=== PATIENT | male | born 1955 | race Caucasian/White ===

== ENCOUNTER 2017-01-05 16:23 | Observation (INO) | payer BC ==
[2017-01-05] MEDS ORDERED: HYDROmorphone* 1 MG/ML 1 ML SYR IV PRN (16:39)
[2017-01-05] MEDS ORDERED: Ondansetron INJ* 2 MG/ML VIAL IV PRN (16:39)
[2017-01-05] MEDS ORDERED: NS 0.9% 1000 ML* 1,000 ML IV SCH (16:45)
--- NOTE | 2017-01-05 18:38 | HP ---
HISTORY AND PHYSICAL: DATE OF ADMISSION: 01/05/17 INDICATION: Status post PEG tube placement. NARRATIVE: Mr. Pennington is a pleasant 61-year-old gentleman who has been diagnosed with tonsillar cancer who is undergoing radiation therapy and will need a PEG tube. He denies any dysphagia at this time; however, he will likely develop odynophagia in the future as the treatment progresses. PAST MEDICAL HISTORY: Significant for: 1. Hypertension. 2. Diabetes. 3. Hypercholesterolemia. 4. Tonsillar cancer. 5. He has had 3 colonoscopies. PAST SURGICAL HISTORY: 1. Bilateral carpal tunnel. 2. Patent ductus repair in 2009. MEDICATIONS: Include: 1. Acyclovir. 2. Metformin. ALLERGIES: None. PERSONAL HABITS: He denies any tobacco. He does have a large amount of secondhand smoke exposure. No alcohol. Some caffeine. REVIEW OF SYSTEMS: All systems were reviewed, other than that mentioned in the HPI were unremarkable. PHYSICAL EXAMINATION GENERAL: Well-appearing male in no apparent distress. Alert, oriented, pleasant, fluent. VITAL SIGNS: Height 5 feet 10 inches, weight 232 pounds. Blood pressure 126/78 , pulse 71. BMI is 33.3. HEENT: Mucous membranes are moist. LUNGS: Clear to auscultation. HEART: Regular rate and rhythm. ABDOMEN: Obese. Positive bowel sounds. Soft, nontender, nondistended. No hepatosplenomegaly, masses, rebound, or guarding. SKIN: Warm and dry. MUSCULOSKELETAL: No CVA or spine tenderness to palpation. ASSESSMENT AND PLAN: This is a pleasant 61-year-old gentleman who just underwent a PEG tube insertion. He is doing well. He will be admitted to the hospital for nutritional consult, for PEG tube teaching, pain control, and hopefully, he can be discharged to home tomorrow. [id number]/[facility] #: [id number] [facility]
[2017-01-06 08:19] VITALS: BP 134/88
[2017-01-06 08:40] LABS: Hematocrit 32 % (42-52); Hemoglobin 10.7 g/dl (14.0-18.0); Mean Corpuscular HGB Conc 34 g/dl (31-36); Mean Corpuscular Hemoglobin 27 pg (27-31); Mean Corpuscular Volume 81 fL (80-94); Mean Platelet Volume 9 um3 (7.4-10.4); Red Blood Count 3.95 10^6/ul (4.0-5.4); Red Cell Distribution Width 14 % (10.5-15)
--- NOTE | 2017-01-06 15:11 | DS ---
DISCHARGE SUMMARY: DATE OF ADMISSION: 01/05/17 DATE OF DISCHARGE: 01/06/17 DISCHARGE DIAGNOSES: 1. Tonsillar cancer. 2. Status post PEG tube placement. HOSPITAL COURSE: The patient was admitted for 24-hour OBV per my routine protocol after his EGD with PEG tube placement yesterday afternoon. The patient tolerated the procedure well. I saw him at approximately 6:30 this morning. He was doing well, had very minimal abdominal pain at the PEG tube site. No other abdominal pain. His abdominal exam was benign and very soft. His vital signs were stable. He was afebrile. Labs were pending at the time and did come back with a hemoglobin of 10.7 which is down slightly from before, however, he may have been a little on the dry side. He did have PEG tube teaching and nutrition consult. He will be discharged to his oncology appointment. The patient will call with any questions or concerns. DISCHARGE INSTRUCTIONS: 1. He can resume all of his previous medications. 2. He will call with me any questions or concerns. [id number]/[facility] #: [id number] [place]
== END 2017-01-06 08:20 | disposition home or self-care (01) ==
LOC: SSU 16:23
PROVIDERS: ADMIT Internal Medicine Gastroenterology; ATTEND Internal Medicine Gastroenterology
DX: C09.9 Malignant neoplasm of tonsil, unspecified (principal); I10 Essential (primary) hypertension; E11.9 Type 2 diabetes mellitus without complications; E78.00 Pure hypercholesterolemia, unspecified; Z79.4 Long term (current) use of insulin
CPT/HCPCS: 36415; 85025; 96374; 96375; G0378; J1170; J2405

== ENCOUNTER → 2018-07-23 09:56 | Emergency (ER) | payer BC ==
[~2018-07-23 09:56] MED LIST: Iodixanol* (CONTRAST) 320 MG/ML 100 ML SDV IV ONE
--- OUTSIDE RECORDS SUMMARY | 2018-07-23 10:18 | XMS REPORT | Continuity of Care Document ---
:1955 External Reference #:[id number] Author Name Emma Curtis Care Team Providers Name Role Phone Fam Robledo MD Primary Care Physician Unavailable Payers Type Date Identification Numbers Payment Provider Subscriber Policy Number: [id number] [employer] Ladonna Pennington PayID: [id number] [address] [address] TAMELA Younger [address] Onset: 2014 Policy Number: [id number] Treo David Pennington Group Name: [phone] [address] PayID: [id number] [address] Advance Directives Description No Information Available Problems Date Description Provider Status Onset: 06/08/2017 Essential hypertension Dianne Rowe NP Active Onset: 06/08/2017 Sleep apnea Dianne Rowe NP Active Note: resolved, not on CPAP Onset: 06/08/2017 Type 2 diabetes mellitus Dianne Rowe NP Active Onset: 06/08/2017 Hyperlipidemia Dianne Rowe NP Active Onset: 06/08/2017 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 11/10 Onset: 01/01/2018 History of external beam Fam Robledo Active radiation to thyroid TNIO Camacho Onset: 01/01/2018 Hypothyroidism Fermin Anthony M.D., FACP Onset: 05/27/2018 Chronic kidney disease stage 2 Fermin Anthony M.D., FACP Family History Date Family Member(s) Problem(s) Comments Father Unknown patient adopted Siblings None adopted Social History Type Date Description Comments Sex Unknown Marital Status Lives With Occupation Currently Working Tobacco Use Start: Unknown Never Smoked Cigarettes Smoking Status Reviewed: 07/23/18 Never Smoked Cigarettes ETOH Use 05/27/2018 Denies alcohol use Tobacco Use Start: Unknown Patient has never smoked Recreational Drug Use Denies Drug Use Exercise Type/Frequency Exercises sporadically bowling and golf Allergies, Adverse Reactions, Alerts Description No Known Drug Allergies Medications Medication Date Status Form Strength Qnty SIG Indications Ordering Provider Lovastatin Active Tablets 20mg 90tabs take 1 Fam 018 tablet at Sujey Robledo, bedtime M.Sujey,FACP Levothyroxine /0 Active Tablets 75mcg 1 by Unknown Sodium 000 mouth every day Levothyroxine Hx Tablets 50mcg 30tabs 1 by Fam Sodium 018 - mouth Sujey Robledo, every day João.Sujey,FACP 018 Lisinopril Hx Tablets 10mg 90tabs 1 by Dianne 018 - mouth Rowe, every day [employer] 018 No Active Hx Unknown Medications 017 - 018 Metformin HCL /0 Hx Tablets 500mg 1 by Unknown 000 - mouth twice a 017 day Lisinopril /0 Hx Tablets 40mg 1 by Unknown 000 - mouth every day 017 Simvastatin /0 Hx Tablets 20mg 1 by Unknown 000 - mouth every day 017 Indapamide /0 Hx Tablets 2.5mg 1 by Unknown 000 - mouth every day 017 Diclofenac /0 Hx Tablets 75mg take 1 Unknown Sodium 000 - DR tablet by mouth 017 twice a day Aleve 00/0 Hx prn Unknown 000 - 017 Levothyroxine /0 Hx Tablets 25mcg 90tabs 1 tabs by Fam Sodium 000 - mouth Sujey Robledo, every day João.Sujey,FACP 018 Immunizations Description No Information Available Vital Signs Date Vital Result Comment 07/23/2018 9:01am Height 69 inches 5'9" Weight 190.00 lb Heart Rate 88 /min BP Systolic Sitting 120 mmHg BP Diastolic Sitting 70 mmHg Body Temperature 100.5 F O2 % BldC Oximetry 95 % BMI (Body Mass Index) 28.1 kg/m2 05/27/2018 9:20am Height 69 inches 5'9" Weight 192.00 lb Heart Rate 62 /min BP Systolic 124 mmHg BP Diastolic 62 mmHg O2 % BldC Oximetry 99 % BMI (Body Mass Index) 28.4 kg/m2 01/01/2018 8:38am Height 69 inches 5'9" Weight 174.00 lb Heart Rate 55 /min BP Systolic Sitting 110 mmHg BP Diastolic Sitting 68 mmHg Body Temperature 96.7 F O2 % BldC Oximetry 98 % BMI (Body Mass Index) 25.7 kg/m2 06/08/2017 9:19am Height 69 inches 5'9" Weight 169.00 lb Heart Rate 56 /min BP Systolic Sitting 130 mmHg BP Diastolic Sitting 72 mmHg Body Temperature 96.2 F BMI (Body Mass Index) 25.0 kg/m2 06/24/2016 11:27am Height 70 inches 5'10" Weight 226.00 lb Pain Level 6 BMI (Body Mass Index) 32.4 kg/m2 03/27/2016 8:26am Height 70 inches 5'10" Weight 226.00 lb per pt Pain Level 5 BMI (Body Mass Index) 32.4 kg/m2 01/24/2016 9:28am Height 70 inches 5'10" Weight 235.00 lb Pain Level 6 BMI (Body Mass Index) 33.7 kg/m2 12/20/2015 8:49am Height 70 inches 5'10" Weight 235.00 lb Pain Level 5 BMI (Body Mass Index) 33.7 kg/m2 11/16/2015 8:56am Height 70 inches 5'10" Weight 235.00 lb Pain Level 5 goes up without the brace BMI (Body Mass Index) 33.7 kg/m2 09/20/2015 9:36am Height 70 inches 5'10" Weight 235.00 lb Pain Level 5 BMI (Body Mass Index) 33.7 kg/m2 08/17/2015 11:25am Height 70 inches 5'10" Weight 235.00 lb Pain Level 5 BMI (Body Mass Index) 33.7 kg/m2 06/19/2015 10:56am Height 70 inches 5'10" Weight 235.00 lb Pain Level 5 BMI (Body Mass Index) 33.7 kg/m2 04/25/2015 3:27pm Height 70 inches 5'10" Weight 235.00 lb Pain Level 8 BMI (Body Mass Index) 33.7 kg/m2 Results Test Date Facility Test Result H/L Range Note Laboratory test 06/25/2018 [facility] TSH 18.33 High 0.34- 5.60 finding 101 (Thyroid mcIU/[place] [address] Stim Horm) [phone] Free T4 (Free Thyroxine) 0.69 ng/dL N 0.61-1.12 Hepatitis C Antibody 06/25/2018 [facility] HCV Index < 0.0 Index [address] [place] [address] [phone] Hepatitis C Antibody Nonreactive Nonreactive Laboratory test 06/25/2018 [facility] Hemoglobin A1c 5.4 % N 4.0-5.6 1 finding 101 (Glyco HGB) [place] [address] [phone] Lipid Profile 06/25/2018 [facility] Triglycerides 78 mg/dL 2 (Trig/Chol/HDL) [address] [place] [address] [phone] Cholesterol 153 mg/dL 3 HDL Cholesterol 45.8 mg/dL 4 LDL Cholesterol 92 mg/dL 5 CBC Auto 06/25/2018 [facility] White Blood 3.4 10^3/uL Low 3.5 -10.8 Diff 101 [place] [address] [phone] Red Blood Count 4.11 10^6/uL N 4.00-5.40 Hemoglobin 12.2 g/dL Low 14.0-18.0 Hematocrit 36 % Low 42-52 Mean Corpuscular Volume 86 fL N 80-94 Mean Corpuscular Hemoglobin 30 pg N 27-31 Mean Corpuscular HGB Conc 34 g/dL N 31-36 Red Cell Distribution Width 14 % N 10.5-15 Platelet Count 192 10^3/uL N 150-450 Mean Platelet Volume 7.9 fL N 7.4-10.4 Abs Neutrophils 2.4 10^3/uL N 1.5-7.7 Abs Lymphocytes 0.5 10^3/uL Low 1.0-4.8 Abs Monocytes 0.4 10^3/uL N 0-0.8 Abs Eosinophils 0.1 10^3/uL N 0-0.6 Abs Basophils 0 10^3/uL N 0-0.2 Abs Nucleated RBC 0 10^3/uL Granulocyte % 69.5 % Lymphocyte % 13.6 % Monocyte % 12.9 % Eosinophil % 2.8 % Basophil % 1.2 % Nucleated Red Blood Cells % 0 Comp Metabolic Panel 06/25/2018 [facility] Sodium 137 mmol/L N 135-[address] [place] [address] [phone] Potassium 4.3 mmol/L N 3.5-5.0 Chloride 105 mmol/L N 101-111 Co2 Carbon Dioxide 27 mmol/L N 22-32 Anion Gap 5 mmol/L N 2-11 Glucose 112 mg/dL High 70-100 Blood Urea Nitrogen 25 mg/dL High 6-24 Creatinine 1.75 mg/dL High 0.67-1.17 BUN/Creatinine Ratio 14.3 N 8-20 Calcium 9.5 mg/dL N 8.6-10.3 Total Protein 6.9 g/dL N 6.4-8.9 Albumin 4.1 g/dL N 3.2-5.2 Globulin 2.8 g/dL N 2-4 Albumin/Globulin Ratio 1.5 N 1-3 Total Bilirubin 0.50 mg/dL N 0.2-1.0 Alkaline Phosphatase 78 U/L N 34-104 Alt 8 U/L N 7-52 Ast 15 U/L N 13-39 Egfr Non- 39.4 >60 Egfr 47.7 >60 6 CBC Auto Diff 03/26/2018 [facility] White Blood 4.8 10^3/uL N 3.5-10.[address] [place] [address] [phone] Red Blood Count 3.74 10^6/uL Low 4.00-5.40 Hemoglobin 11.5 g/dL Low 14.0-18.0 Hematocrit 33 % Low 42-52 Mean Corpuscular Volume 88 fL N 80-94 Mean Corpuscular Hemoglobin 31 pg N 27-31 Mean Corpuscular HGB Conc 35 g/dL N 31-36 Red Cell Distribution Width 14 % N 10.5-15 Platelet Count 166 10^3/uL N 150-450 Mean Platelet Volume 8.1 um3 N 7.4-10.4 Abs Neutrophils 3.7 10^3/uL N 1.5-7.7 Abs Lymphocytes 0.6 10^3/uL Low 1.0-4.8 Abs Monocytes 0.4 10^3/uL N 0-0.8 Abs Eosinophils 0.1 10^3/uL N 0-0.6 Abs Basophils 0 10^3/uL N 0-0.2 Abs Nucleated RBC 0 10^3/uL Granulocyte % 77.3 % N 38-83 Lymphocyte % 11.9 % Low 25-47 Monocyte % 7.3 % High 0-7 Eosinophil % 2.5 % N 0-6 Basophil % 1.0 % N 0-2 Nucleated Red Blood Cells % 0 Comp Metabolic Panel 03/26/2018 [facility] Sodium 138 mmol/L N 135-145 [address] [place] [address] [phone] Potassium 4.6 mmol/L N 3.5-5.0 Chloride 107 mmol/L N 101-111 Co2 Carbon Dioxide 26 mmol/L N 22-32 Anion Gap 5 mmol/L N 2-11 Glucose 116 mg/dL High 70-100 Blood Urea Nitrogen 28 mg/dL High 6-24 Creatinine 1.65 mg/dL High 0.67-1.17 BUN/Creatinine Ratio 17.0 N 8-20 Calcium 9.4 mg/dL N 8.6-10.3 Total Protein 6.9 g/dL N 6.4-8.9 Albumin 4.1 g/dL N 3.2-5.2 Globulin 2.8 g/dL N 2-4 Albumin/Globulin Ratio 1.5 N 1-3 Total Bilirubin 0.50 mg/dL N 0.2-1.0 Alkaline Phosphatase 73 U/L N 34-104 Alt 9 U/L N 7-52 Ast 15 U/L N 13-39 Egfr Non- 42.2 >60 Egfr 51.1 >60 7 Laboratory test 03/26/2018 [facility] TSH (Thyroid 8.09 High 0.34-5.[address] [facility]orm) mcIU/[place] [address] [phone] Basic Metabolic 01/15/2018 [facility] Sodium 139 mmol/L N 135- [address] [place] [address] [phone] Potassium 4.5 mmol/L N 3.5-5.0 Chloride 105 mmol/L N 101-111 Co2 Carbon Dioxide 27 mmol/L N 22-32 Anion Gap 7 mmol/L N 2-11 Glucose 128 mg/dL High 70-100 Blood Urea Nitrogen 38 mg/dL High 6-24 Creatinine 1.72 mg/dL High 0.67-1.17 BUN/Creatinine Ratio 22.1 High 8-20 Calcium 9.8 mg/dL N 8.6-10.3 Egfr Non- 40.4 >60 Egfr 48.8 >60 8 Lipid Profile 01/01/2018 [facility] Triglycerides 66 mg/dL 9 (Trig/Chol/HDL) [address] [place] [address] [phone] Cholesterol 202 mg/dL 10 HDL Cholesterol 51.5 mg/dL 11 LDL Cholesterol 137 mg/dL 12 Urine Microalbumin 01/01/2018 [facility] Ur Microalbumin < 15.[address] (mg/L) mg/[place] [address] [phone] Urine Creatinine 100.19 mg/dL Urine Microalbumin/Creatinine TNP ug/mg <31 13 Laboratory test 01/01/2018 [facility] TSH (Thyroid 5.05 N 0.34 -5.60 [address] Stim Horm) mcIU/[place] [address] [phone] Comp Metabolic 01/01/2018 [facility] Sodium 137 mmol/L Low 139 -[address] [place] [address] [phone] Chloride 106 mmol/L N 101-111 Co2 Carbon Dioxide 24 mmol/L N 22-32 Glucose 102 mg/dL High 70-100 Blood Urea Nitrogen 36 mg/dL High 6-24 Creatinine 1.90 mg/dL High 0.67-1.17 BUN/Creatinine Ratio 18.9 N 8-20 Calcium 9.2 mg/dL N 8.6-10.3 Total Protein 6.7 g/dL N 6.4-8.9 Albumin 3.9 g/dL N 3.2-5.2 Globulin 2.8 g/dL N 2-4 Albumin/Globulin Ratio 1.4 N 1-3 Total Bilirubin 0.40 mg/dL N 0.2-1.0 Alkaline Phosphatase 77 U/L N 34-104 Alt 11 U/L N 7-52 Ast 16 U/L N 13-39 Egfr Non- 36.0 >60 Egfr 46.3 >60 15 Potassium 5.1 mmol/L High 3.5-5.0 Anion Gap 7 mmol/L N 2-11 Laboratory test 01/01/2018 [facility] Hemoglobin A1c 5.6 % N 4.0-5.6 [address] (Glyco HGB) [place] [address] [phone] Laboratory test 01/01/2018 [facility] Hemoglobin A1c 5.6 5-7 finding CBC Auto Diff 10/09/2017 [facility] White Blood 2.7 Low 3.5- 10.[address] Count 10^3/[place] [address] [phone] Red Blood Count 3.43 10^6/uL Low 4.0-5.4 Hemoglobin 10.1 g/dL Low 14.0-18.0 Hematocrit 30 % Low 42-52 Mean Corpuscular Volume 87 fL N 80-94 Mean Corpuscular Hemoglobin 29 pg N 27-31 Mean Corpuscular HGB Conc 34 g/dL N 31-36 Red Cell Distribution Width 15 % N 10.5-15 Platelet Count 178 10^3/uL N 150-450 Mean Platelet Volume 8 um3 N 7.4-10.4 Abs Neutrophils 1.8 10^3/uL N 1.5-7.7 Abs Lymphocytes 0.5 10^3/uL Low 1.0-4.8 Abs Monocytes 0.3 10^3/uL N 0-0.8 Abs Eosinophils 0.1 10^3/uL N 0-0.6 Abs Basophils 0 10^3/uL N 0-0.2 Abs Nucleated RBC 0 10^3/uL Granulocyte % 68.6 % N 38-83 Lymphocyte % 17.1 % Low 25-47 Monocyte % 10.7 % High 0-7 Eosinophil % 3.2 % N 0-6 Basophil % 0.4 % N 0-2 Nucleated Red Blood Cells % 0.1 Comp Metabolic Panel 10/09/2017 [facility] Sodium 138 mmol/L N 133-[address] [place] [address] [phone] Potassium 4.0 mmol/L N 3.5-5.0 Chloride 105 mmol/L N 101-111 Co2 Carbon Dioxide 27 mmol/L N 22-32 Anion Gap 6 mmol/L N 2-11 Glucose 102 mg/dL High 70-100 Blood Urea Nitrogen 24 mg/dL N 6-24 Creatinine 1.37 mg/dL High 0.67-1.17 BUN/Creatinine Ratio 17.5 N 8-20 Calcium 9.7 mg/dL N 8.6-10.3 Total Protein 7.0 g/dL N 6.4-8.9 Albumin 4.1 g/dL N 3.2-5.2 Globulin 2.9 g/dL N 2-4 Albumin/Globulin Ratio 1.4 N 1-3 Total Bilirubin 0.40 mg/dL N 0.2-1.0 Alkaline Phosphatase 70 U/L N 34-104 Alt 10 U/L N 7-52 Ast 15 U/L N 13-39 Egfr Non- 52.5 >60 Egfr 67.5 >60 17 Laboratory test 10/09/2017 [facility] TSH (Thyroid 19.48 High 0.34-5.60 finding 101 [facility] Stim Horm) mcIU/[place] [address] [phone] Laboratory test 08/14/2017 [facility] Magnesium 1.7 mg/dL Low 1.9-2.7 finding [address] [place] [address] [phone] Comp Metabolic 08/14/2017 [facility] Sodium 138 mmol/L N 133- 145 Panel [address] [place] [address] [phone] Potassium 4.0 mmol/L N 3.5-5.0 Chloride 104 mmol/L N 101-111 Co2 Carbon Dioxide 28 mmol/L N 22-32 Anion Gap 6 mmol/L N 2-11 Glucose 109 mg/dL High 70-100 Blood Urea Nitrogen 21 mg/dL N 6-24 Creatinine 1.38 mg/dL High 0.67-1.17 BUN/Creatinine Ratio 15.2 N 8-20 Calcium 9.9 mg/dL N 8.6-10.3 Total Protein 7.2 g/dL N 6.4-8.9 Albumin 4.1 g/dL N 3.2-5.2 Globulin 3.1 g/dL N 2-4 Albumin/Globulin Ratio 1.3 N 1-3 Total Bilirubin 0.50 mg/dL N 0.2-1.0 Alkaline Phosphatase 71 U/L N 34-104 Alt 7 U/L N 7-52 Ast 14 U/L N 13-39 Egfr Non- 52.0 >60 Egfr 66.9 >60 18 CBC Auto 08/14/2017 [facility] White Blood 2.9 10^3/uL Low 3.5 -10.[address] [place] [address] [phone] Red Blood Count 3.49 10^6/uL Low 4.0-5.4 Hemoglobin 10.5 g/dL Low 14.0-18.0 Hematocrit 30 % Low 42-52 Mean Corpuscular Volume 87 fL N 80-94 Mean Corpuscular Hemoglobin 30 pg N 27-31 Mean Corpuscular HGB Conc 35 g/dL N 31-36 Red Cell Distribution Width 14 % N 10.5-15 Platelet Count 197 10^3/uL N 150-450 Mean Platelet Volume 8 um3 N 7.4-10.4 Abs Neutrophils 2.0 10^3/uL N 1.5-7.7 Abs Lymphocytes 0.4 10^3/uL Low 1.0-4.8 Abs Monocytes 0.3 10^3/uL N 0-0.8 Abs Eosinophils 0.1 10^3/uL N 0-0.6 Abs Basophils 0 10^3/uL N 0-0.2 Abs Nucleated RBC 0 10^3/uL Granulocyte % 69.2 % N 38-83 Lymphocyte % 15.2 % Low 25-47 Monocyte % 9.5 % High 1-9 Eosinophil % 4.6 % N 0-6 Basophil % 1.5 % N 0-2 Nucleated Red Blood Cells % 0 CBC Auto Diff 07/24/2017 [facility] White Blood 5.0 10^3/uL N 3.5-10.[address] [place] [address] [phone] Red Blood Count 3.58 10^6/uL Low 4.0-5.4 Hemoglobin 10.8 g/dL Low 14.0-18.0 Hematocrit 31 % Low 42-52 Mean Corpuscular Volume 88 fL N 80-94 Mean Corpuscular Hemoglobin 30 pg N 27-31 Mean Corpuscular HGB Conc 35 g/dL N 31-36 Red Cell Distribution Width 14 % N 10.5-15 Platelet Count 185 10^3/uL N 150-450 Mean Platelet Volume 8 um3 N 7.4-10.4 Abs Neutrophils 4.1 10^3/uL N 1.5-7.7 Abs Lymphocytes 0.3 10^3/uL Low 1.0-4.8 Abs Monocytes 0.4 10^3/uL N 0-0.8 Abs Eosinophils 0.1 10^3/uL N 0-0.6 Abs Basophils 0 10^3/uL N 0-0.2 Abs Nucleated RBC 0 10^3/uL Granulocyte % 82.2 % N 38-83 Lymphocyte % 6.3 % Low 25-47 Monocyte % 8.0 % N 1-9 Eosinophil % 2.7 % N 0-6 Basophil % 0.8 % N 0-2 Nucleated Red Blood Cells % 0.1 Comp Metabolic Panel 07/24/2017 [facility] Sodium 137 mmol/L N 133-[address] [place] [address] [phone] Potassium 4.3 mmol/L N 3.5-5.0 Chloride 102 mmol/L N 101-111 Co2 Carbon Dioxide 29 mmol/L N 22-32 Anion Gap 6 mmol/L N 2-11 Glucose 122 mg/dL High 70-100 Blood Urea Nitrogen 35 mg/dL High 6-24 Creatinine 1.28 mg/dL High 0.67-1.17 BUN/Creatinine Ratio 27.3 High 8-20 Calcium 10.3 mg/dL N 8.6-10.3 Total Protein 7.3 g/dL N 6.4-8.9 Albumin 4.1 g/dL N 3.2-5.2 Globulin 3.2 g/dL N 2-4 Albumin/Globulin Ratio 1.3 N 1-3 Total Bilirubin 0.40 mg/dL N 0.2-1.0 Alkaline Phosphatase 81 U/L N 34-104 Alt 12 U/L N 7-52 Ast 16 U/L N 13-39 Egfr Non- 56.8 >60 Egfr 73.0 >60 19 Laboratory test 07/24/2017 [facility] TSH (Thyroid 10.10 High 0.34-5.[address] Stim [facility]orm) mcIU/[place] [address] [phone] Basic Metabolic 07/03/2017 [facility] Sodium 137 mmol/L N 133- [address] [place] [address] [phone] Potassium 4.5 mmol/L N 3.5-5.0 Chloride 102 mmol/L N 101-111 Co2 Carbon Dioxide 28 mmol/L N 22-32 Anion Gap 7 mmol/L N 2-11 Glucose 110 mg/dL High 70-100 Blood Urea Nitrogen 40 mg/dL High 6-24 Creatinine 1.43 mg/dL High 0.67-1.17 BUN/Creatinine Ratio 28.0 High 8-20 Calcium 10.3 mg/dL N 8.6-10.3 Egfr Non- 49.9 >60 Egfr 64.2 >60 20 Laboratory test 07/03/2017 [facility] TSH (Thyroid 7.84 High 0.34-5.[address] Stim Horm) mcIU/[place] [address] [phone] CBC Auto Diff 06/22/2017 [facility] White Blood 3.6 10^3/uL N 3.5-10.[address] [place] [address] [phone] Red Blood Count 3.48 10^6/uL Low 4.0-5.4 Hemoglobin 10.7 g/dL Low 14.0-18.0 Hematocrit 31 % Low 42-52 Mean Corpuscular Volume 88 fL N 80-94 Mean Corpuscular Hemoglobin 31 pg N 27-31 Mean Corpuscular HGB Conc 35 g/dL N 31-36 Red Cell Distribution Width 14 % N 10.5-15 Platelet Count 160 10^3/uL N 150-450 Mean Platelet Volume 8 um3 N 7.4-10.4 Abs Neutrophils 2.6 10^3/uL N 1.5-7.7 Abs Lymphocytes 0.5 10^3/uL Low 1.0-4.8 Abs Monocytes 0.3 10^3/uL N 0-0.8 Abs Eosinophils 0.1 10^3/uL N 0-0.6 Abs Basophils 0 10^3/uL N 0-0.2 Abs Nucleated RBC 0 10^3/uL Granulocyte % 73.7 % N 38-83 Lymphocyte % 13.4 % Low 25-47 Monocyte % 8.2 % N 1-9 Eosinophil % 3.5 % N 0-6 Basophil % 1.2 % N 0-2 Nucleated Red Blood Cells % 0 Comp Metabolic Panel 06/22/2017 [facility] Sodium 137 mmol/L N 133-145 [address] [place] [address] [phone] Potassium 4.3 mmol/L N 3.5-5.0 Chloride 103 mmol/L N 101-111 Co2 Carbon Dioxide 28 mmol/L N 22-32 Anion Gap 6 mmol/L N 2-11 Glucose 112 mg/dL High 70-100 Blood Urea Nitrogen 33 mg/dL High 6-24 Creatinine 1.51 mg/dL High 0.67-1.17 BUN/Creatinine Ratio 21.9 High 8-20 Calcium 10.2 mg/dL N 8.6-10.3 Total Protein 7.1 g/dL N 6.4-8.9 Albumin 4.0 g/dL N 3.2-5.2 Globulin 3.1 g/dL N 2-4 Albumin/Globulin Ratio 1.3 N 1-3 Total Bilirubin 0.40 mg/dL N 0.2-1.0 Alkaline Phosphatase 73 U/L N 34-104 Alt 8 U/L N 7-52 Ast 15 U/L N 13-39 Egfr Non- 46.9 >60 Egfr 60.3 >60 21 Laboratory test 06/22/2017 [facility] Magnesium 2.0 mg/dL N 1.9-2.7 finding [address] [place] [address] [phone] Laboratory test 06/08/2017 [facility] Hemoglobin A1c 5.3 5-7 finding Laboratory test 06/08/2017 [facility] Magnesium 2.3 mg/dL N 1.9-2.7 finding [address] [place] [address] [phone] Comp Metabolic 06/08/2017 [facility] Sodium 138 mmol/L N 133- 145 Panel [address] [place] [address] [phone] Potassium 4.6 mmol/L N 3.5-5.0 Chloride 101 mmol/L N 101-111 Co2 Carbon Dioxide 31 mmol/L N 22-32 Anion Gap 6 mmol/L N 2-11 Glucose 101 mg/dL High 70-100 Creatinine 1.41 mg/dL High 0.67-1.17 Calcium 10.4 mg/dL High 8.6-10.3 Total Protein 7.4 g/dL N 6.4-8.9 Albumin 4.0 g/dL N 3.2-5.2 Globulin 3.4 g/dL N 2-4 Albumin/Globulin Ratio 1.2 N 1-3 Total Bilirubin 0.30 mg/dL N 0.2-1.0 Alkaline Phosphatase 89 U/L N 34-104 Alt 13 U/L N 7-52 Ast 17 U/L N 13-39 Egfr Non- 50.8 >60 Egfr 65.3 >60 22 Blood Urea Nitrogen 45 mg/dL High 6-24 BUN/Creatinine Ratio 31.9 High 8-20 CBC Auto Diff 06/08/2017 [facility] White Blood 4.2 10^3/uL N 3.5-10.[address] [place] [address] [phone] Red Blood Count 3.32 10^6/uL Low 4.0-5.4 Hemoglobin 10.3 g/dL Low 14.0-18.0 Hematocrit 30 % Low 42-52 Mean Corpuscular Volume 89 fL N 80-94 Mean Corpuscular Hemoglobin 31 pg N 27-31 Mean Corpuscular HGB Conc 35 g/dL N 31-36 Red Cell Distribution Width 13 % N 10.5-15 Platelet Count 248 10^3/uL N 150-450 Mean Platelet Volume 8 um3 N 7.4-10.4 Abs Neutrophils 3.3 10^3/uL N 1.5-7.7 Abs Lymphocytes 0.4 10^3/uL Low 1.0-4.8 Abs Monocytes 0.3 10^3/uL N 0-0.8 Abs Eosinophils 0.1 10^3/uL N 0-0.6 Abs Basophils 0 10^3/uL N 0-0.2 Abs Nucleated RBC 0 10^3/uL Granulocyte % 78.9 % N 38-83 Lymphocyte % 9.8 % Low 25-47 Monocyte % 7.1 % N 1-9 Eosinophil % 3.3 % N 0-6 Basophil % 0.9 % N 0-2 Nucleated Red Blood Cells % 0.1 Comp Metabolic Panel 05/25/2017 [facility] Sodium 135 mmol/L N 133-[address] [place] [address] [phone] Potassium 4.3 mmol/L N 3.5-5.0 Chloride 101 mmol/L N 101-111 Co2 Carbon Dioxide 29 mmol/L N 22-32 Anion Gap 5 mmol/L N 2-11 Glucose 104 mg/dL High 70-100 Blood Urea Nitrogen 39 mg/dL High 6-24 Creatinine 1.41 mg/dL High 0.67-1.17 BUN/Creatinine Ratio 27.7 High 8-20 Calcium 9.9 mg/dL N 8.6-10.3 Total Protein 7.0 g/dL N 6.4-8.9 Albumin 4.0 g/dL N 3.2-5.2 Globulin 3.0 g/dL N 2-4 Albumin/Globulin Ratio 1.3 N 1-3 Total Bilirubin 0.40 mg/dL N 0.2-1.0 Alkaline Phosphatase 78 U/L N 34-104 Alt 9 U/L N 7-52 Ast 13 U/L N 13-39 Egfr Non- 50.8 N >60 Egfr 65.3 N >60 23 Laboratory test 05/25/2017 [facility] Magnesium 2.1 mg/dL N 1.9-2.[address] [place] [address] [phone] CBC Auto Diff 05/25/2017 [facility] White Blood 5.5 N 3.5- 10.[address] Count 10^3/[place] [address] [phone] Red Blood Count 2.95 10^6/uL Low 4.0-5.4 Hemoglobin 9.4 g/dL Low 14.0-18.0 Hematocrit 27 % Low 42-52 Mean Corpuscular Volume 91 fL N 80-94 Mean Corpuscular Hemoglobin 32 pg High 27-31 Mean Corpuscular HGB Conc 35 g/dL N 31-36 Red Cell Distribution Width 14 % N 10.5-15 Platelet Count 180 10^3/uL N 150-450 Mean Platelet Volume 8 um3 N 7.4-10.4 Abs Neutrophils 4.8 10^3/uL N 1.5-7.7 Abs Lymphocytes 0.3 10^3/uL Low 1.0-4.8 Abs Monocytes 0.4 10^3/uL N 0-0.8 Abs Eosinophils 0 10^3/uL N 0-0.6 Abs Basophils 0 10^3/uL N 0-0.2 Abs Nucleated RBC 0 10^3/uL N Granulocyte % 86.7 % High 38-83 Lymphocyte % 5.3 % Low 25-47 Monocyte % 6.7 % N 1-9 Eosinophil % 0.9 % N 0-6 Basophil % 0.4 % N 0-2 Nucleated Red Blood Cells % 0 N Wound 05/22/2017 [facility] Wound/Misc SEE RESULT 24, 25 Culture/Sens[facility] [address] [place] [address] Stain [phone] Laboratory test 05/22/2017 [facility] MRSA/S. aureus SEE RESULT [address] [address] [phone] Laboratory test 05/22/2017 [facility] Point of Care 84 mg/dL N 70-1 [address] Glucose 00 [place], [place] [id number] [phone] Laboratory test 05/18/2017 [facility] Magnesium 2.2 mg/dL N 1.9- finding [address] 2.7 [place], [place] [id number] [phone] Comp Metabolic 05/18/2017 [facility] Sodium 136 mmol/L N 133- Panel [address] [place], [place] [id number] [phone] Potassium 4.4 mmol/L N 3.5-5.0 Chloride 101 mmol/L N 101-111 Co2 Carbon Dioxide 29 mmol/L N 22-32 Anion Gap 6 mmol/L N 2-11 Glucose 115 mg/dL High 70-100 Blood Urea Nitrogen 41 mg/dL High 6-24 Creatinine 1.36 mg/dL High 0.67-1.17 BUN/Creatinine Ratio 30.1 High 8-20 Calcium 10.2 mg/dL N 8.6-10.3 Total Protein 7.0 g/dL N 6.4-8.9 Albumin 4.0 g/dL N 3.2-5.2 Globulin 3.0 g/dL N 2-4 Albumin/Globulin Ratio 1.3 N 1-3 Total Bilirubin 0.40 mg/dL N 0.2-1.0 Alkaline Phosphatase 78 U/L N 34-104 Alt 10 U/L N 7-52 Ast 14 U/L N 13-39 Egfr Non- 52.9 N >60 Egfr 68.1 N >60 28 CBC Auto 05/18/2017 [facility] White Blood 3.1 10^3/uL Low 3.5 -10.8 [address] [place] [address] [phone] Red Blood Count 2.94 10^6/uL Low 4.0-5.4 Hemoglobin 9.4 g/dL Low 14.0-18.0 Hematocrit 27 % Low 42-52 Mean Corpuscular Volume 91 fL N 80-94 Mean Corpuscular Hemoglobin 32 pg High 27-31 Mean Corpuscular HGB Conc 35 g/dL N 31-36 Red Cell Distribution Width 14 % N 10.5-15 Platelet Count 175 10^3/uL N 150-450 Mean Platelet Volume 9 um3 N 7.4-10.4 Abs Neutrophils 2.3 10^3/uL N 1.5-7.7 Abs Lymphocytes 0.4 10^3/uL Low 1.0-4.8 Abs Monocytes 0.3 10^3/uL N 0-0.8 Abs Eosinophils 0.1 10^3/uL N 0-0.6 Abs Basophils 0 10^3/uL N 0-0.2 Abs Nucleated RBC 0.01 10^3/uL N Granulocyte % 75.3 % N 38-83 Lymphocyte % 11.9 % Low 25-47 Monocyte % 9.1 % High 1-9 Eosinophil % 2.8 % N 0-6 Basophil % 0.9 % N 0-2 Nucleated Red Blood Cells % 0.3 N CBC Auto 05/11/2017 [facility] White Blood 3.4 10^3/uL Low 3.5 -10.8 [address] [place] [address] [phone] Red Blood Count 3.03 10^6/uL Low 4.0-5.4 Hemoglobin 9.7 g/dL Low 14.0-18.0 Hematocrit 28 % Low 42-52 Mean Corpuscular Volume 91 fL N 80-94 Mean Corpuscular Hemoglobin 32 pg High 27-31 Mean Corpuscular HGB Conc 35 g/dL N 31-36 Red Cell Distribution Width 14 % N 10.5-15 Platelet Count 188 10^3/uL N 150-450 Mean Platelet Volume 9 um3 N 7.4-10.4 Abs Neutrophils 2.6 10^3/uL N 1.5-7.7 Abs Lymphocytes 0.4 10^3/uL Low 1.0-4.8 Abs Monocytes 0.3 10^3/uL N 0-0.8 Abs Eosinophils 0.1 10^3/uL N 0-0.6 Abs Basophils 0 10^3/uL N 0-0.2 Abs Nucleated RBC 0 10^3/uL N Granulocyte % 74.9 % N 38-83 Lymphocyte % 11.7 % Low 25-47 Monocyte % 9.5 % High 1-9 Eosinophil % 2.8 % N 0-6 Basophil % 1.1 % N 0-2 Nucleated Red Blood Cells % 0 N Comp Metabolic Panel 05/11/2017 [facility] Sodium 137 mmol/L N 133-145 [address] [place] [address] [phone] Potassium 4.3 mmol/L N 3.5-5.0 Chloride 101 mmol/L N 101-111 Co2 Carbon Dioxide 29 mmol/L N 22-32 Anion Gap 7 mmol/L N 2-11 Glucose 118 mg/dL High 70-100 Blood Urea Nitrogen 44 mg/dL High 6-24 Creatinine 1.50 mg/dL High 0.67-1.17 BUN/Creatinine Ratio 29.3 High 8-20 Calcium 10.1 mg/dL N 8.6-10.3 Total Protein 7.4 g/dL N 6.4-8.9 Albumin 4.2 g/dL N 3.2-5.2 Globulin 3.2 g/dL N 2-4 Albumin/Globulin Ratio 1.3 N 1-3 Total Bilirubin 0.40 mg/dL N 0.2-1.0 Alkaline Phosphatase 82 U/L N 34-104 Alt 12 U/L N 7-52 Ast 16 U/L N 13-39 Egfr Non- 47.3 N >60 Egfr 60.8 N >60 31 Laboratory test 05/11/2017 [facility] Magnesium 2.4 mg/dL N 1.9-2.[address] [place] [address] [phone] Creatinine 05/11/2017 [facility] Urine Collection 24 N Clearance [address] [place] [address] [phone] Urine Total Volume 2500 mL N Creatinine 1.50 mg/dL High 0.51-0.95 Urine Random Creatinine 50.88 mg/dL N Creatinine Clearance 59 mL/min Low 97-137 Basic Metabolic Panel 05/08/2017 [facility] Sodium 137 mmol/L N 133-[address] [place] [address] [phone] Potassium 4.3 mmol/L N 3.5-5.0 Chloride 100 mmol/L Low 101-111 Co2 Carbon Dioxide 29 mmol/L N 22-32 Anion Gap 8 mmol/L N 2-11 Glucose 105 mg/dL High 70-100 Blood Urea Nitrogen 46 mg/dL High 6-24 Creatinine 1.34 mg/dL High 0.67-1.17 BUN/Creatinine Ratio 34.3 High 8-20 Calcium 9.9 mg/dL N 8.6-10.3 Egfr Non- 53.8 N >60 Egfr 69.2 N >60 32 Laboratory test 05/08/2017 [facility] Magnesium 2.2 mg/dL N 1.9-2.[address] [place] [address] [phone] CBC Auto Diff 05/08/2017 [facility] White Blood 3.8 N 3.5- 10.[address] Count 10^3/[place] [address] [phone] Red Blood Count 3.00 10^6/uL Low 4.0-5.4 Hemoglobin 9.4 g/dL Low 14.0-18.0 Hematocrit 27 % Low 42-52 Mean Corpuscular Volume 91 fL N 80-94 Mean Corpuscular Hemoglobin 31 pg N 27-31 Mean Corpuscular HGB Conc 35 g/dL N 31-36 Red Cell Distribution Width 15 % N 10.5-15 Platelet Count 196 10^3/uL N 150-450 Mean Platelet Volume 8 um3 N 7.4-10.4 Abs Neutrophils 3.0 10^3/uL N 1.5-7.7 Abs Lymphocytes 0.4 10^3/uL Low 1.0-4.8 Abs Monocytes 0.3 10^3/uL N 0-0.8 Abs Eosinophils 0.1 10^3/uL N 0-0.6 Abs Basophils 0 10^3/uL N 0-0.2 Abs Nucleated RBC 0 10^3/uL N Granulocyte % 78.6 % N 38-83 Lymphocyte % 9.9 % Low 25-47 Monocyte % 8.1 % N 1-9 Eosinophil % 2.3 % N 0-6 Basophil % 1.1 % N 0-2 Nucleated Red Blood Cells % 0.1 N CBC Auto Diff 05/04/2017 [facility] White Blood 3.5 10^3/uL N 3.5-10.[address] [place] [address] [phone] Red Blood Count 3.08 10^6/uL Low 4.0-5.4 Hemoglobin 9.7 g/dL Low 14.0-18.0 Hematocrit 28 % Low 42-52 Mean Corpuscular Volume 90 fL N 80-94 Mean Corpuscular Hemoglobin 32 pg High 27-31 Mean Corpuscular HGB Conc 35 g/dL N 31-36 Red Cell Distribution Width 15 % N 10.5-15 Platelet Count 200 10^3/uL N 150-450 Mean Platelet Volume 8 um3 N 7.4-10.4 Abs Neutrophils 2.8 10^3/uL N 1.5-7.7 Abs Lymphocytes 0.4 10^3/uL Low 1.0-4.8 Abs Monocytes 0.3 10^3/uL N 0-0.8 Abs Eosinophils 0.1 10^3/uL N 0-0.6 Abs Basophils 0 10^3/uL N 0-0.2 Abs Nucleated RBC 0 10^3/uL N Granulocyte % 78.9 % N 38-83 Lymphocyte % 10.1 % Low 25-47 Monocyte % 7.9 % N 1-9 Eosinophil % 2.2 % N 0-6 Basophil % 0.9 % N 0-2 Nucleated Red Blood Cells % 0 N Comp Metabolic Panel 05/04/2017 [facility] Sodium 136 mmol/L N 133-[address] [place] [address] [phone] Potassium 4.5 mmol/L N 3.5-5.0 Chloride 100 mmol/L Low 101-111 Co2 Carbon Dioxide 29 mmol/L N 22-32 Anion Gap 7 mmol/L N 2-11 Glucose 123 mg/dL High 70-100 Blood Urea Nitrogen 45 mg/dL High 6-24 Creatinine 1.49 mg/dL High 0.67-1.17 BUN/Creatinine Ratio 30.2 High 8-20 Calcium 10.1 mg/dL N 8.6-10.3 Total Protein 7.5 g/dL N 6.4-8.9 Albumin 4.2 g/dL N 3.2-5.2 Globulin 3.3 g/dL N 2-4 Albumin/Globulin Ratio 1.3 N 1-3 Total Bilirubin 0.40 mg/dL N 0.2-1.0 Alkaline Phosphatase 86 U/L N 34-104 Alt 10 U/L N 7-52 Ast 15 U/L N 13-39 Egfr Non- 47.6 N >60 Egfr 61.3 N >60 33 Laboratory test 05/04/2017 [facility] Magnesium 2.4 mg/dL N 1.9-2.7 finding [address] [place] [address] [phone] Laboratory test 04/27/2017 [facility] Magnesium 2.2 mg/dL N 1.9-2.7 finding [address] [place] [address] [phone] Comp Metabolic 04/27/2017 [facility] Sodium 136 mmol/L N 133- 145 Panel [address] [place] [address] [phone] Potassium 4.1 mmol/L N 3.5-5.0 Chloride 101 mmol/L N 101-111 Co2 Carbon Dioxide 29 mmol/L N 22-32 Anion Gap 6 mmol/L N 2-11 Glucose 103 mg/dL High 70-100 Blood Urea Nitrogen 36 mg/dL High 6-24 Creatinine 1.29 mg/dL High 0.67-1.17 BUN/Creatinine Ratio 27.9 High 8-20 Calcium 9.4 mg/dL N 8.6-10.3 Total Protein 6.8 g/dL N 6.4-8.9 Albumin 3.8 g/dL N 3.2-5.2 Globulin 3.0 g/dL N 2-4 Albumin/Globulin Ratio 1.3 N 1-3 Total Bilirubin 0.40 mg/dL N 0.2-1.0 Alkaline Phosphatase 73 U/L N 34-104 Alt 10 U/L N 7-52 Ast 14 U/L N 13-39 Egfr Non- 56.3 N >60 Egfr 72.3 N >60 34 CBC Auto 04/27/2017 [facility] White Blood 1.5 10^3/uL Low 3.5 -10.8 [address] [place] [address] [phone] Red Blood Count 2.44 10^6/uL Low 4.0-5.4 Hemoglobin 7.7 g/dL Low 14.0-18.0 Hematocrit 22 % Low 42-52 Mean Corpuscular Volume 90 fL N 80-94 Mean Corpuscular Hemoglobin 32 pg High 27-31 Mean Corpuscular HGB Conc 35 g/dL N 31-36 Red Cell Distribution Width 15 % N 10.5-15 Platelet Count 160 10^3/uL N 150-450 Mean Platelet Volume 8 um3 N 7.4-10.4 Abs Neutrophils 0.9 10^3/uL Low 1.5-7.7 36 Abs Lymphocytes 0.3 10^3/uL Low 1.0-4.8 Abs Monocytes 0.2 10^3/uL N 0-0.8 Abs Eosinophils 0 10^3/uL N 0-0.6 Abs Basophils 0 10^3/uL N 0-0.2 Abs Nucleated RBC 0 10^3/uL N Granulocyte % 63.2 % N 38-83 Lymphocyte % 19.2 % Low 25-47 Monocyte % 14.2 % High 1-9 Eosinophil % 2.3 % N 0-6 Basophil % 1.1 % N 0-2 Nucleated Red Blood Cells % 0.3 N Leukemia/Lymphoma Flow 04/24/2017 [facility] Path Interpretation TNP N [address] 2-[address] [place] [address] [phone] Path Interpret > 16 Marker TNP N Path Interpret 9-15 Marker (SEE NOTE) N 37 CBC Auto 04/24/2017 [facility] White Blood 1.5 10^3/uL Low 3.5 -10.8 [address] Count [place], [place] [id number] [phone] Red Blood Count 2.40 10^6/uL Low 4.0-5.4 Hemoglobin 7.6 g/dL Low 14.0-18.0 Hematocrit 22 % Low 42-52 Mean Corpuscular Volume 90 fL N 80-94 Mean Corpuscular Hemoglobin 32 pg High 27-31 Mean Corpuscular HGB Conc 35 g/dL N 31-36 Red Cell Distribution Width 15 % N 10.5-15 Platelet Count 144 10^3/uL Low 150-450 Mean Platelet Volume 8 um3 N 7.4-10.4 Abs Neutrophils 0.9 10^3/uL Low 1.5-7.7 39 Abs Lymphocytes 0.3 10^3/uL Low 1.0-4.8 40 Abs Monocytes 0.2 10^3/uL N 0-0.8 Abs Eosinophils 0 10^3/uL N 0-0.6 Abs Basophils 0 10^3/uL N 0-0.2 Abs Nucleated RBC 0 10^3/uL N Granulocyte % 59.1 % N 38-83 Lymphocyte % 20.3 % Low 25-47 Monocyte % 16.2 % High 1-9 Eosinophil % 3.2 % N 0-6 Basophil % 1.2 % N 0-2 Nucleated Red Blood Cells % 0 N Comp Metabolic Panel 04/24/2017 [facility] Sodium 135 mmol/L N 133-145 [address] [place] [address] [phone] Potassium 4.2 mmol/L N 3.5-5.0 Chloride 100 mmol/L Low 101-111 Co2 Carbon Dioxide 28 mmol/L N 22-32 Anion Gap 7 mmol/L N 2-11 Glucose 110 mg/dL High 70-100 Blood Urea Nitrogen 40 mg/dL High 6-24 Creatinine 1.43 mg/dL High 0.67-1.17 BUN/Creatinine Ratio 28.0 High 8-20 Calcium 9.6 mg/dL N 8.6-10.3 Total Protein 6.6 g/dL N 6.4-8.9 Albumin 3.8 g/dL N 3.2-5.2 Globulin 2.8 g/dL N 2-4 Albumin/Globulin Ratio 1.4 N 1-3 Total Bilirubin 0.50 mg/dL N 0.2-1.0 Alkaline Phosphatase 72 U/L N 34-104 Alt 9 U/L N 7-52 Ast 14 U/L N 13-39 Egfr Non- 49.9 N >60 Egfr 64.2 N >60 41 Laboratory test 04/24/2017 [facility] Magnesium 2.3 mg/dL N 1.9-2.7 finding [address] [place] [address] [phone] Prealbumin 25 mg/dL N 18-38 Comp Metabolic Panel 04/20/2017 [facility] Sodium 136 mmol/L N 133-[address] [place] [address] [phone] Potassium 4.7 mmol/L N 3.5-5.0 Chloride 101 mmol/L N 101-111 Co2 Carbon Dioxide 29 mmol/L N 22-32 Anion Gap 6 mmol/L N 2-11 Glucose 108 mg/dL High 70-100 Blood Urea Nitrogen 26 mg/dL High 6-24 Creatinine 1.24 mg/dL High 0.67-1.17 BUN/Creatinine Ratio 21.0 High 8-20 Calcium 9.6 mg/dL N 8.6-10.3 Total Protein 6.7 g/dL N 6.4-8.9 Albumin 3.8 g/dL N 3.2-5.2 Globulin 2.9 g/dL N 2-4 Albumin/Globulin Ratio 1.3 N 1-3 Total Bilirubin 0.50 mg/dL N 0.2-1.0 Alkaline Phosphatase 67 U/L N 34-104 Alt 9 U/L N 7-52 Ast 13 U/L N 13-39 Egfr Non- 58.9 N >60 Egfr 75.7 N >60 42 Laboratory test 04/20/2017 [facility] Magnesium 2.1 mg/dL N 1.9-2.7 finding [address] [place] [address] [phone] CBC Auto Diff 04/20/2017 [facility] White Blood 2.5 Low 3.5- 10.[address] Count 10^3/[place] [address] [phone] Red Blood Count 2.80 10^6/uL Low 4.0-5.4 Hemoglobin 8.9 g/dL Low 14.0-18.0 Hematocrit 25 % Low 42-52 Mean Corpuscular Volume 90 fL N 80-94 Mean Corpuscular Hemoglobin 32 pg High 27-31 Mean Corpuscular HGB Conc 35 g/dL N 31-36 Red Cell Distribution Width 16 % High 10.5-15 Platelet Count 157 10^3/uL N 150-450 Mean Platelet Volume 8 um3 N 7.4-10.4 Abs Neutrophils 1.9 10^3/uL N 1.5-7.7 Abs Lymphocytes 0.2 10^3/uL Low 1.0-4.8 Abs Monocytes 0.3 10^3/uL N 0-0.8 Abs Eosinophils 0 10^3/uL N 0-0.6 Abs Basophils 0 10^3/uL N 0-0.2 Abs Nucleated RBC 0 10^3/uL N Granulocyte % 76.6 % N 38-83 Lymphocyte % 8.8 % Low 25-47 Monocyte % 11.7 % High 1-9 Eosinophil % 2.0 % N 0-6 Basophil % 0.9 % N 0-2 Nucleated Red Blood Cells % 0.1 N Laboratory test 04/17/2017 [facility] Magnesium 1.9 mg/dL N 1.9-2.7 finding [address] [place] [address] [phone] Comp Metabolic 04/17/2017 [facility] Sodium 135 mmol/L N 133- 145 Panel [address] [place] [address] [phone] Potassium 4.1 mmol/L N 3.5-5.0 Chloride 101 mmol/L N 101-111 Co2 Carbon Dioxide 29 mmol/L N 22-32 Anion Gap 5 mmol/L N 2-11 Glucose 103 mg/dL High 70-100 Blood Urea Nitrogen 27 mg/dL High 6-24 Creatinine 1.41 mg/dL High 0.67-1.17 BUN/Creatinine Ratio 19.1 N 8-20 Calcium 9.3 mg/dL N 8.6-10.3 Total Protein 6.4 g/dL N 6.4-8.9 Albumin 3.6 g/dL N 3.2-5.2 Globulin 2.8 g/dL N 2-4 Albumin/Globulin Ratio 1.3 N 1-3 Total Bilirubin 0.50 mg/dL N 0.2-1.0 Alkaline Phosphatase 63 U/L N 34-104 Alt 8 U/L N 7-52 Ast 12 U/L Low 13-39 Egfr Non- 50.8 N >60 Egfr 65.3 N >60 44 CBC Auto 04/17/2017 [facility] White Blood 1.8 10^3/uL Low 3.5 -10.8 [address] [place] [address] [phone] Red Blood Count 2.61 10^6/uL Low 4.0-5.4 Hemoglobin 8.1 g/dL Low 14.0-18.0 Hematocrit 24 % Low 42-52 Mean Corpuscular Volume 90 fL N 80-94 Mean Corpuscular Hemoglobin 31 pg N 27-31 Mean Corpuscular HGB Conc 35 g/dL N 31-36 Red Cell Distribution Width 17 % High 10.5-15 Platelet Count 160 10^3/uL N 150-450 Mean Platelet Volume 8 um3 N 7.4-10.4 Abs Neutrophils 1.1 10^3/uL Low 1.5-7.7 Abs Lymphocytes 0.3 10^3/uL Low 1.0-4.8 Abs Monocytes 0.3 10^3/uL N 0-0.8 Abs Eosinophils 0.1 10^3/uL N 0-0.6 Abs Basophils 0 10^3/uL N 0-0.2 Abs Nucleated RBC 0 10^3/uL N Granulocyte % 60.8 % N 38-83 Lymphocyte % 19.0 % Low 25-47 Monocyte % 15.7 % High 1-9 Eosinophil % 3.5 % N 0-6 Basophil % 1.0 % N 0-2 Nucleated Red Blood Cells % 0 N Comp Metabolic Panel 04/14/2017 [facility] Sodium 136 mmol/L N 133-[address] [place] [address] [phone] Potassium 4.4 mmol/L N 3.5-5.0 Chloride 103 mmol/L N 101-111 Co2 Carbon Dioxide 24 mmol/L N 22-32 Anion Gap 9 mmol/L N 2-11 Glucose 75 mg/dL N 70-100 Blood Urea Nitrogen 27 mg/dL High 6-24 Creatinine 1.60 mg/dL High 0.67-1.17 BUN/Creatinine Ratio 16.9 N 8-20 Calcium 9.4 mg/dL N 8.6-10.3 Total Protein 6.6 g/dL N 6.4-8.9 Albumin 3.8 g/dL N 3.2-5.2 Globulin 2.8 g/dL N 2-4 Albumin/Globulin Ratio 1.4 N 1-3 Total Bilirubin 0.60 mg/dL N 0.2-1.0 Alkaline Phosphatase 63 U/L N 34-104 Alt 6 U/L Low 7-52 Ast 11 U/L Low 13-39 Egfr Non- 43.9 N >60 Egfr 56.4 N >60 46 Laboratory test 04/14/2017 [facility] Magnesium 1.8 mg/dL Low 1.9-2.[address] [place] [address] [phone] CBC Auto Diff 04/14/2017 [facility] White Blood 1.6 Low 3.5- 10.[address] Count 10^3/[place] [address] [phone] Red Blood Count 2.62 10^6/uL Low 4.0-5.4 Hemoglobin 8.3 g/dL Low 14.0-18.0 Hematocrit 24 % Low 42-52 Mean Corpuscular Volume 90 fL N 80-94 Mean Corpuscular Hemoglobin 32 pg High 27-31 Mean Corpuscular HGB Conc 35 g/dL N 31-36 Red Cell Distribution Width 17 % High 10.5-15 Platelet Count 152 10^3/uL N 150-450 Mean Platelet Volume 7 um3 Low 7.4-10.4 Abs Neutrophils 0.9 10^3/uL Low 1.5-7.7 Abs Lymphocytes 0.3 10^3/uL Low 1.0-4.8 Abs Monocytes 0.3 10^3/uL N 0-0.8 Abs Eosinophils 0.1 10^3/uL N 0-0.6 Abs Basophils 0 10^3/uL N 0-0.2 Abs Nucleated RBC 0 10^3/uL N Granulocyte % 58.8 % N 38-83 Lymphocyte % 18.0 % Low 25-47 Monocyte % 18.4 % High 1-9 Eosinophil % 3.4 % N 0-6 Basophil % 1.4 % N 0-2 Nucleated Red Blood Cells % 0.1 N CBC Auto 04/10/2017 [facility] White Blood 1.4 10^3/uL Low 3.5 -10.8 [address] [place] [address] [phone] Red Blood Count 2.64 10^6/uL Low 4.0-5.4 Hemoglobin 8.3 g/dL Low 14.0-18.0 Hematocrit 24 % Low 42-52 Mean Corpuscular Volume 89 fL N 80-94 Mean Corpuscular Hemoglobin 31 pg N 27-31 Mean Corpuscular HGB Conc 35 g/dL N 31-36 Red Cell Distribution Width 18 % High 10.5-15 Platelet Count 162 10^3/uL N 150-450 Mean Platelet Volume 8 um3 N 7.4-10.4 Abs Neutrophils 0.7 10^3/uL Low 1.5-7.7 49 Abs Lymphocytes 0.3 10^3/uL Low 1.0-4.8 50 Abs Monocytes 0.3 10^3/uL N 0-0.8 Abs Eosinophils 0.1 10^3/uL N 0-0.6 Abs Basophils 0 10^3/uL N 0-0.2 Abs Nucleated RBC 0 10^3/uL N Granulocyte % 49.9 % N 38-83 Lymphocyte % 22.2 % Low 25-47 Monocyte % 22.4 % High 1-9 Eosinophil % 4.0 % N 0-6 Basophil % 1.5 % N 0-2 Nucleated Red Blood Cells % 0 N Comp Metabolic Panel 04/10/2017 [facility] Sodium 134 mmol/L N 133-145 [address] [place] [address] [phone] Potassium 3.8 mmol/L N 3.5-5.0 Chloride 102 mmol/L N 101-111 Co2 Carbon Dioxide 25 mmol/L N 22-32 Anion Gap 7 mmol/L N 2-11 Glucose 101 mg/dL High 70-100 Blood Urea Nitrogen 31 mg/dL High 6-24 Creatinine 1.44 mg/dL High 0.67-1.17 BUN/Creatinine Ratio 21.5 High 8-20 Calcium 9.7 mg/dL N 8.6-10.3 Total Protein 6.7 g/dL N 6.4-8.9 Albumin 3.8 g/dL N 3.2-5.2 Globulin 2.9 g/dL N 2-4 Albumin/Globulin Ratio 1.3 N 1-3 Total Bilirubin 0.60 mg/dL N 0.2-1.0 Alkaline Phosphatase 65 U/L N 34-104 Alt 6 U/L Low 7-52 Ast 11 U/L Low 13-39 Egfr Non- 49.5 N >60 Egfr 63.7 N >60 51 Laboratory test 04/10/2017 [facility] Magnesium 1.8 mg/dL Low 1.9-2.7 finding [address] [place] [address] [phone] Laboratory test 04/06/2017 [facility] Packed Cells SEE RESULTS 52 finding 101 [facility] [place] <[place] [address] NOTE> [phone] Type & Screen 04/06/2017 [facility] Patient Blood A Positive [place] [address] [place] [address] [phone] Antibody Screen NEGATIVE N Laboratory test 04/06/2017 [facility] Magnesium 1.9 mg/dL N 1.9-2.7 finding [address] [place] [address] [phone] Thyroxine 8.88 g/mL N 6.09-12.23 TSH (Thyroid Stim Horm) 2.18 mcIU/mL N 0.34-5.60 T3 Total 0.86 ng/mL Low 0.87-1.78 Comp Metabolic Panel 04/06/2017 [facility] Sodium 136 mmol/L N 133-145 [address] [place] [address] [phone] Potassium 4.2 mmol/L N 3.5-5.0 Chloride 103 mmol/L N 101-111 Co2 Carbon Dioxide 26 mmol/L N 22-32 Anion Gap 7 mmol/L N 2-11 Glucose 125 mg/dL High 70-100 Blood Urea Nitrogen 33 mg/dL High 6-24 Creatinine 1.45 mg/dL High 0.67-1.17 BUN/Creatinine Ratio 22.8 High 8-20 Calcium 9.7 mg/dL N 8.6-10.3 Total Protein 6.7 g/dL N 6.4-8.9 Albumin 3.8 g/dL N 3.2-5.2 Globulin 2.9 g/dL N 2-4 Albumin/Globulin Ratio 1.3 N 1-3 Total Bilirubin 0.70 mg/dL N 0.2-1.0 Alkaline Phosphatase 64 U/L N 34-104 Alt 7 U/L N 7-52 Ast 13 U/L N 13-39 Egfr Non- 49.2 N >60 Egfr 63.2 N >60 53 CBC Auto 04/06/2017 [facility] White Blood 1.7 10^3/uL Low 3.5 -10.8 [address] [place] [address] [phone] Red Blood Count 2.41 10^6/uL Low 4.0-5.4 Hemoglobin 7.5 g/dL Low 14.0-18.0 Hematocrit 22 % Low 42-52 Mean Corpuscular Volume 89 fL N 80-94 Mean Corpuscular Hemoglobin 31 pg N 27-31 Mean Corpuscular HGB Conc 35 g/dL N 31-36 Red Cell Distribution Width 20 % High 10.5-15 Platelet Count 175 10^3/uL N 150-450 Mean Platelet Volume 8 um3 N 7.4-10.4 Abs Neutrophils 1.1 10^3/uL Low 1.5-7.7 Abs Lymphocytes 0.3 10^3/uL Low 1.0-4.8 Abs Monocytes 0.3 10^3/uL N 0-0.8 Abs Eosinophils 0 10^3/uL N 0-0.6 Abs Basophils 0 10^3/uL N 0-0.2 Abs Nucleated RBC 0 10^3/uL N Granulocyte % 64.8 % N 38-83 Lymphocyte % 15.7 % Low 25-47 Monocyte % 16.3 % High 1-9 Eosinophil % 1.8 % N 0-6 Basophil % 1.4 % N 0-2 Nucleated Red Blood Cells % 0 N CBC Auto 04/03/2017 [facility] White Blood 2.1 10^3/uL Low 3.5 -10.8 [address] [place] [address] [phone] Red Blood Count 2.48 10^6/uL Low 4.0-5.4 Hemoglobin 7.5 g/dL Low 14.0-18.0 Hematocrit 22 % Low 42-52 Mean Corpuscular Volume 90 fL N 80-94 Mean Corpuscular Hemoglobin 31 pg N 27-31 Mean Corpuscular HGB Conc 34 g/dL N 31-36 Red Cell Distribution Width 21 % High 10.5-15 Platelet Count 186 10^3/uL N 150-450 Mean Platelet Volume 8 um3 N 7.4-10.4 Abs Neutrophils 1.4 10^3/uL Low 1.5-7.7 Abs Lymphocytes 0.3 10^3/uL Low 1.0-4.8 Abs Monocytes 0.4 10^3/uL N 0-0.8 Abs Eosinophils 0.1 10^3/uL N 0-0.6 Abs Basophils 0 10^3/uL N 0-0.2 Abs Nucleated RBC 0 10^3/uL N Granulocyte % 63.5 % N 38-83 Lymphocyte % 14.5 % Low 25-47 Monocyte % 17.7 % High 1-9 Eosinophil % 3.1 % N 0-6 Basophil % 1.2 % N 0-2 Nucleated Red Blood Cells % 0.1 N Comp Metabolic Panel 04/03/2017 [facility] Sodium 136 mmol/L N 133-145 [address] [place] [address] [phone] Potassium 4.5 mmol/L N 3.5-5.0 Chloride 102 mmol/L N 101-111 Co2 Carbon Dioxide 28 mmol/L N 22-32 Anion Gap 6 mmol/L N 2-11 Glucose 115 mg/dL High 70-100 Blood Urea Nitrogen 35 mg/dL High 6-24 Creatinine 1.49 mg/dL High 0.67-1.17 BUN/Creatinine Ratio 23.5 High 8-20 Calcium 9.6 mg/dL N 8.6-10.3 Total Protein 6.6 g/dL N 6.4-8.9 Albumin 3.7 g/dL N 3.2-5.2 Globulin 2.9 g/dL N 2-4 Albumin/Globulin Ratio 1.3 N 1-3 Total Bilirubin 0.60 mg/dL N 0.2-1.0 Alkaline Phosphatase 63 U/L N 34-104 Alt 7 U/L N 7-52 Ast 12 U/L Low 13-39 Egfr Non- 47.6 N >60 Egfr 61.3 N >60 56 Laboratory test 04/03/2017 [facility] Magnesium 2.0 mg/dL N 1.9-2.7 finding [address] [place] [address] [phone] 1 Therapeutic target for the treatment of diabetes mellitus patients is <7% HBA1C, and in selective patients <6.0%. Please refer to [place] [employer] diabetic care guidelines for further information. 2 Desirable: <150 Borderline High: 150-199 High: 200-499 Very High: >500 3 Desirable: <200 Borderline High: 200-239 High: >239 4 Low: <40 Desirable: 40-60 High: >60 5 Desirable: <100 Near Optimal: 100-129 Borderline High: 130-159 High: 160-189 Very High: >189 6 Because ethnic data is not always readily available, this report includes an eGFR for both -Americans and non- Americans. The National Kidney Disease Education Program (NKDEP) does not endorse the use of the MDRD equation for patients that are not between the ages of 18 and 70, are , have extremes of body size, muscle mass, or nutritional status, or are non- or non-. According to the National Kidney Foundation, irrespective of diagnosis, the stage of the disease is based on the level of kidney function: Stage Description GFR(mL/min/1.73 m(2)) 1 Kidney damage with normal or decreased GFR 90 2 Kidney damage with mild decrease in GFR 60-89 3 Moderate decrease in GFR 30-59 4 Severe decrease in GFR 15-29 5 Kidney failure <15 (or dialysis) 7 Because ethnic data is not always readily available, this report includes an eGFR for both -Americans and non- Americans. The National Kidney Disease Education Program (NKDEP) does not endorse the use of the MDRD equation for patients that are not between the ages of 18 and 70, are , have extremes of body size, muscle mass, or nutritional status, or are non- or non-. According to the National Kidney Foundation, irrespective of diagnosis, the stage of the disease is based on the level of kidney function: Stage Description GFR(mL/min/1.73 m(2)) 1 Kidney damage with normal or decreased GFR 90 2 Kidney damage with mild decrease in GFR 60-89 3 Moderate decrease in GFR 30-59 4 Severe decrease in GFR 15-29 5 Kidney failure <15 (or dialysis) 8 Because ethnic data is not always readily available, this report includes an eGFR for both -Americans and non- Americans. The National Kidney Disease Education Program (NKDEP) does not endorse the use of the MDRD equation for patients that are not between the ages of 18 and 70, are , have extremes of body size, muscle mass, or nutritional status, or are non- or non-. According to the [employer], irrespective of diagnosis, the stage of the disease is based on the level of kidney function: Stage Description GFR(mL/min/1.73 m(2)) 1 Kidney damage with normal or decreased GFR 90 2 Kidney damage with mild decrease in GFR 60-89 3 Moderate decrease in GFR 30-59 4 Severe decrease in GFR 15-29 5 Kidney failure <15 (or dialysis) 9 Desirable: <150 Borderline High: 150-199 High: 200-499 Very High: >500 10 Desirable: <200 Borderline High: 200-239 High: >239 11 Low: <40 Desirable: 40-60 High: >60 12 Desirable: <100 Near Optimal: 100-129 Borderline High: 130-159 High: 160-189 Very High: >189 13 Unable to calculate due to low microalbumin 14 FASTING 10 HOUR 15 Because ethnic data is not always readily available, this report includes an eGFR for both -Americans and non- Americans. The National Kid[employer] Disease Education Program (NKDEP) does not endorse the use of the MDRD equation for patients that are not between the ages of 18 and 70, are , have extremes of body size, muscle mass, or nutritional status, or are non- or non-. According to the [employer], irrespective of diagnosis, the stage of the disease is based on the level of kidney function: Stage Description GFR(mL/min/1.73 m(2)) 1 Kidney damage with normal or decreased GFR 90 2 Kidney damage with mild decrease in GFR 60-89 3 Moderate decrease in GFR 30-59 4 Severe decrease in GFR 15-29 5 Kidney failure <15 (or dialysis) 16 Therapeutic target for the treatment of diabetes mellitus patients is <7% HBA1C, and in selective patients <6.0%. Please refer to [place] [employer] diabetic care guidelines for further information. 17 Because ethnic data is not always readily available, this report includes an eGFR for both -Americans and non- Americans. The National Kid[employer] Disease Education Program (NKDEP) does not endorse the use of the MDRD equation for patients that are not between the ages of 18 and 70, are , have extremes of body size, muscle mass, or nutritional status, or are non- or non-. According to the [employer], irrespective of diagnosis, the stage of the disease is based on the level of kidney function: Stage Description GFR(mL/min/1.73 m(2)) 1 Kidney damage with normal or decreased GFR 90 2 Kidney damage with mild decrease in GFR 60-89 3 Moderate decrease in GFR 30-59 4 Severe decrease in GFR 15-29 5 Kidney failure <15 (or dialysis) 18 Because ethnic data is not always readily available, this report includes an eGFR for both -Americans and non- Americans. The National Kidney Disease Education Program (NKDEP) does not endorse the use of the MDRD equation for patients that are not between the ages of 18 and 70, are , have extremes of body size, muscle mass, or nutritional status, or are non- or non-. According to the National Kidney Foundation, irrespective of diagnosis, the stage of the disease is based on the level of kidney function: Stage Description GFR(mL/min/1.73 m(2)) 1 Kidney damage with normal or decreased GFR 90 2 Kidney damage with mild decrease in GFR 60-89 3 Moderate decrease in GFR 30-59 4 Severe decrease in GFR 15-29 5 Kidney failure <15 (or dialysis) 19 Because ethnic data is not always readily available, this report includes an eGFR for both -Americans and non- Americans. The National Kidney Disease Education Program (NKDEP) does not endorse the use of the MDRD equation for patients that are not between the ages of 18 and 70, are , have extremes of body size, muscle mass, or nutritional status, or are non- or non-. According to the National Kidney Foundation, irrespective of diagnosis, the stage of the disease is based on the level of kidney function: Stage Description GFR(mL/min/1.73 m(2)) 1 Kidney damage with normal or decreased GFR 90 2 Kidney damage with mild decrease in GFR 60-89 3 Moderate decrease in GFR 30-59 4 Severe decrease in GFR 15-29 5 Kidney failure <15 (or dialysis) 20 Because ethnic data is not always readily available, this report includes an eGFR for both -Americans and non- Americans. The National Kidney Disease Education Program (NKDEP) does not endorse the use of the MDRD equation for patients that are not between the ages of 18 and 70, are , have extremes of body size, muscle mass, or nutritional status, or are non- or non-. According to the National Kidney Foundation, irrespective of diagnosis, the stage of the disease is based on the level of kidney function: Stage Description GFR(mL/min/1.73 m(2)) 1 Kidney damage with normal or decreased GFR 90 2 Kidney damage with mild decrease in GFR 60-89 3 Moderate decrease in GFR 30-59 4 Severe decrease in GFR 15-29 5 Kidney failure <15 (or dialysis) 21 Because ethnic data is not always readily available, this report includes an eGFR for both -Americans and non- Americans. The National Kidney Disease Education Program (NKDEP) does not endorse the use of the MDRD equation for patients that are not between the ages of 18 and 70, are , have extremes of body size, muscle mass, or nutritional status, or are non- or non-. According to the National Kidney Foundation, irrespective of diagnosis, the stage of the disease is based on the level of kidney function: Stage Description GFR(mL/min/1.73 m(2)) 1 Kidney damage with normal or decreased GFR 90 2 Kidney damage with mild decrease in GFR 60-89 3 Moderate decrease in GFR 30-59 4 Severe decrease in GFR 15-29 5 Kidney failure <15 (or dialysis) 22 Because ethnic data is not always readily available, this report includes an eGFR for both -Americans and non- Americans. The National Kidney Disease Education Program (NKDEP) does not endorse the use of the MDRD equation for patients that are not between the ages of 18 and 70, are , have extremes of body size, muscle mass, or nutritional status, or are non- or non-. According to the National Kidney Foundation, irrespective of diagnosis, the stage of the disease is based on the level of kidney function: Stage Description GFR(mL/min/1.73 m(2)) 1 Kidney damage with normal or decreased GFR 90 2 Kidney damage with mild decrease in GFR 60-89 3 Moderate decrease in GFR 30-59 4 Severe decrease in GFR 15-29 5 Kidney failure <15 (or dialysis) 23 Because ethnic data is not always readily available, this report includes an eGFR for both -Americans and non- Americans. The National Kidney Disease Education Program (NKDEP) does not endorse the use of the MDRD equation for patients that are not between the ages of 18 and 70, are , have extremes of body size, muscle mass, or nutritional status, or are non- or non-. According to the National Kidney Foundation, irrespective of diagnosis, the stage of the disease is based on the level of kidney function: Stage Description GFR(mL/min/1.73 m(2)) 1 Kidney damage with normal or decreased GFR 90 2 Kidney damage with mild decrease in GFR 60-89 3 Moderate decrease in GFR 30-59 4 Severe decrease in GFR 15-29 5 Kidney failure <15 (or dialysis) 24 SWAB FROM PEG SITE IN STOMACH 25 SEE RESULT BELOW Name: DAVID PENNINGTON Bekah : [address]: Vic Ray MD Acct: [id number] Unit: [id number] AGE: 62 Location: [facility] Re05/22/17 SEX: M Status: REG REF SPEC: [id number] ASUNCION: 05/22/17-[address]: Vic Ray MD REQ: [id number] RECD: 05/22/17 STATUS: RES OTHR DR: Fam Robledo MD _ [facility] SPDESC: ORDERED: MRSA/SA SSTI, Culture Stain COMMENTS: SWAB FROM PEG SITE IN STOMACH QUERIES: Specimen Description PEG TUBE-STOMACH Procedure Result Reported Site MRSA/S. aureus SSTI PCR PENDING Wound/Misc Gram Stain Final 05/22/17- 1426 ML 1+ Nucleated Cells 4+ Neutrophils 1+ Epithelial Cells 1+ Gram Positive Cocci 1+ Gram Positive Bacilli Wound/Misc Culture PENDING * ML - MAIN LAB ([facility]) . END OF REPORT * ML=Testing performed at Main Lab DEPARTMENT OF PATHOLOGY, [address] [place] [address] Noah Bill M.D. Director [facility] # [id number] 26 SEE RESULT BELOW Name: DAVID PENNINGTON Bekah : [address]: Vic Ray MD Acct: [id number] Unit: [id number] AGE: 62 Location: [facility] Re05/22/17 SEX: M Status: REG REF SPEC: [id number] ASUNCION: 05/22/[address]: Vic Ray MD REQ: [id number] RECD: 05/22/17 STATUS: PRETTY SAGE DR: Fam Robledo MD _ SOURCE: [facility] SPDESC: ORDERED: MRSA/SA SSTI, Culture Stain COMMENTS: SWAB FROM PEG SITE IN STOMACH Verbal to [id number] by [id number] at 1547 on 05/22/17. Results read back accurately. QUERIES: Specimen Description PEG TUBE-STOMACH Procedure Result Reported Site MRSA/S. aureus SSTI PCR Final 05/22/17- 1548 ML Organism 1 MRSA NEGATIVE Organism 2 S.AUREUS POSITIVE Wound/Misc Gram Stain Final 05/22/17- 1426 ML 1+ Nucleated Cells 4+ Neutrophils 1+ Epithelial Cells 1+ Gram Positive Cocci 1+ Gram Positive Bacilli Wound/Misc Culture Final 05/24/17- 1221 ML Organism 1 STAPHYLOCOCCUS AUREUS Quantity 3+ Organism 2 NORMAL FERMÍN Quantity 3+ 1. STAPHYLOCOCCUS AUREUS M.I.C. RX --------- ------ Penicillin >=0.5 R Clindamycin <=0.25 S Erythromycin <=0.25 S Gentamicin <=0.5 S CONTINUED ON NEXT PAGE * ML=Testing performed at Main Lab DEPARTMENT OF PATHOLOGY, [address] [place] [address] Noah Bill M.D. Director [facility] # [id number] Patient: DAVID PENNINGTON [id number] (Continued) Specimen: [id number] Collected: 05/22/17 Received: 05/22/17 (Continued) Procedure Result Reported Site Wound/Misc Culture Final (continued) 05/24/17- 1221 1. STAPHYLOCOCCUS AUREUS (continued) M.I.C. RX --------- ------ Linezolid 2 S Nitrofurantoin <=16 S Oxacillin <=0.25 S * Quinupristin/Dalfopristin 0.5 S Rifampin <=0.5 S Tetracycline <=1 S Doxycycline - Deduced S * Minocycline - Deduced S Trimethoprim/Sulfamethoxazole <=10 S Vancomycin <=0.5 S Imipenem-Deduced S * Ampicillin/Sulbactam-Deduced S Cefazolin-Deduced S * These antibiotics are not available in the [facility] Formulary Contact the Microbiology Department for any additional antibiotic reporting. * ML - MAIN LAB ([facility]) . END OF REPORT * ML=Testing performed at Main Lab DEPARTMENT OF PATHOLOGY, [address] [place] [address] Noah Bill M.D. Director [facility] # [id number] [address] [place] Man: [id number] 28 Because ethnic data is not always readily available, this report includes an eGFR for both -Americans and non- Americans. The National Kidney Disease Education Program (NKDEP) does not endorse the use of the MDRD equation for patients that are not between the ages of 18 and 70, are , have extremes of body size, muscle mass, or nutritional status, or are non- or non-. According to the National Kidney Foundation, irrespective of diagnosis, the stage of the disease is based on the level of kidney function: Stage Description GFR(mL/min/1.73 m(2)) 1 Kidney damage with normal or decreased GFR 90 2 Kidney damage with mild decrease in GFR 60-89 3 Moderate decrease in GFR 30-59 4 Severe decrease in GFR 15-29 5 Kidney failure <15 (or dialysis) 29 Consistent with previous results on 05/11/17. 30 Consistent with previous results on 04/27/17. 31 Because ethnic data is not always readily available, this report includes an eGFR for both -Americans and non- Americans. The National Kidney Disease Education Program (NKDEP) does not endorse the use of the MDRD equation for patients that are not between the ages of 18 and 70, are , have extremes of body size, muscle mass, or nutritional status, or are non- or non-. According to the National Kidney Foundation, irrespective of diagnosis, the stage of the disease is based on the level of kidney function: Stage Description GFR(mL/min/1.73 m(2)) 1 Kidney damage with normal or decreased GFR 90 2 Kidney damage with mild decrease in GFR 60-89 3 Moderate decrease in GFR 30-59 4 Severe decrease in GFR 15-29 5 Kidney failure <15 (or dialysis) 32 Because ethnic data is not always readily available, this report includes an eGFR for both -Americans and non- Americans. The National Kidney Disease Education Program (NKDEP) does not endorse the use of the MDRD equation for patients that are not between the ages of 18 and 70, are , have extremes of body size, muscle mass, or nutritional status, or are non- or non-. According to the National Kidney Foundation, irrespective of diagnosis, the stage of the disease is based on the level of kidney function: Stage Description GFR(mL/min/1.73 m(2)) 1 Kidney damage with normal or decreased GFR 90 2 Kidney damage with mild decrease in GFR 60-89 3 Moderate decrease in GFR 30-59 4 Severe decrease in GFR 15-29 5 Kidney failure <15 (or dialysis) 33 Because ethnic data is not always readily available, this report includes an eGFR for both -Americans and non- Americans. The National Kidney Disease Education Program (NKDEP) does not endorse the use of the MDRD equation for patients that are not between the ages of 18 and 70, are , have extremes of body size, muscle mass, or nutritional status, or are non- or non-. According to the National Kidney Foundation, irrespective of diagnosis, the stage of the disease is based on the level of kidney function: Stage Description GFR(mL/min/1.73 m(2)) 1 Kidney damage with normal or decreased GFR 90 2 Kidney damage with mild decrease in GFR 60-89 3 Moderate decrease in GFR 30-59 4 Severe decrease in GFR 15-29 5 Kidney failure <15 (or dialysis) 34 Because ethnic data is not always readily available, this report includes an eGFR for both -Americans and non- Americans. The National Kidney Disease Education Program (NKDEP) does not endorse the use of the MDRD equation for patients that are not between the ages of 18 and 70, are , have extremes of body size, muscle mass, or nutritional status, or are non- or non-. According to the National Kidney Foundation, irrespective of diagnosis, the stage of the disease is based on the level of kidney function: Stage Description GFR(mL/min/1.73 m(2)) 1 Kidney damage with normal or decreased GFR 90 2 Kidney damage with mild decrease in GFR 60-89 3 Moderate decrease in GFR 30-59 4 Severe decrease in GFR 15-29 5 Kidney failure <15 (or dialysis) 35 Consistent with previous results on 04/24/17. 36 Consistent with previous results on 04/24/17. 37 FINAL DIAGNOSIS: Specimen Source: Bone marrow Flow cytometry immunophenotypic analysis: No evidence of an immunophenotypically abnormal cell population. Interpretative data: Blasts: 1% of gated events Lymphocytes: 5% of gated events B-cells: 2% of lymphs; kappa:lambda within normal limits T-cells/NK cells: No aberrant population detected. Markers tested: CD3, CD10, CD16, CD19, CD34, CD45, kappa surface light chains, lambda surface light chains, 7-AAD cytoplasmic kappa light chains, cytoplasmic lambda light chains. Quality Assessment: Acceptable Viability: Acceptable Viable lymphocytes (7-AAD): 92% Specimen received within validated guidelines. A Miller-Giemsa stained slide prepared from the flow cytometry specimen was examined for quality purposes. Electronically signed by: Paz Walton MD 04/27/17 1105 Technical component performed by: [place] [address] Police Investigator: David Schaeffer II, MD, PhD. 38 Consistent with previous results on 04/20/17. 39 Consistent with previous results on 04/17/17. 40 Consistent with previous results on 04/20/17. 41 Because ethnic data is not always readily available, this report includes an eGFR for both -Americans and non- Americans. The National Kidney Disease Education Program (NKDEP) does not endorse the use of the MDRD equation for patients that are not between the ages of 18 and 70, are , have extremes of body size, muscle mass, or nutritional status, or are non- or non-. According to the National Kidney Foundation, irrespective of diagnosis, the stage of the disease is based on the level of kidney function: Stage Description GFR(mL/min/1.73 m(2)) 1 Kidney damage with normal or decreased GFR 90 2 Kidney damage with mild decrease in GFR 60-89 3 Moderate decrease in GFR 30-59 4 Severe decrease in GFR 15-29 5 Kidney failure <15 (or dialysis) 42 Because ethnic data is not always readily available, this report includes an eGFR for both -Americans and non- Americans. The National Kidney Disease Education Program (NKDEP) does not endorse the use of the MDRD equation for patients that are not between the ages of 18 and 70, are , have extremes of body size, muscle mass, or nutritional status, or are non- or non-. According to the National Kidney Foundation, irrespective of diagnosis, the stage of the disease is based on the level of kidney function: Stage Description GFR(mL/min/1.73 m(2)) 1 Kidney damage with normal or decreased GFR 90 2 Kidney damage with mild decrease in GFR 60-89 3 Moderate decrease in GFR 30-59 4 Severe decrease in GFR 15-29 5 Kidney failure <15 (or dialysis) 43 Consistent with previous results on 04/17/17. 44 Because ethnic data is not always readily available, this report includes an eGFR for both -Americans and non- Americans. The National Kidney Disease Education Program (NKDEP) does not endorse the use of the MDRD equation for patients that are not between the ages of 18 and 70, are , have extremes of body size, muscle mass, or nutritional status, or are non- or non-. According to the National Kidney Foundation, irrespective of diagnosis, the stage of the disease is based on the level of kidney function: Stage Description GFR(mL/min/1.73 m(2)) 1 Kidney damage with normal or decreased GFR 90 2 Kidney damage with mild decrease in GFR 60-89 3 Moderate decrease in GFR 30-59 4 Severe decrease in GFR 15-29 5 Kidney failure <15 (or dialysis) 45 Consistent with previous results on 04/14/17. 46 Because ethnic data is not always readily available, this report includes an eGFR for both -Americans and non- Americans. The National Kidney Disease Education Program (NKDEP) does not endorse the use of the MDRD equation for patients that are not between the ages of 18 and 70, are , have extremes of body size, muscle mass, or nutritional status, or are non- or non-. According to the National Kidney Foundation, irrespective of diagnosis, the stage of the disease is based on the level of kidney function: Stage Description GFR(mL/min/1.73 m(2)) 1 Kidney damage with normal or decreased GFR 90 2 Kidney damage with mild decrease in GFR 60-89 3 Moderate decrease in GFR 30-59 4 Severe decrease in GFR 15-29 5 Kidney failure <15 (or dialysis) 47 Consistent with previous results on 04/10/17. 48 Consistent with previous results on 04/06/17. 49 Consistent with previous results on 04/06/17. 50 Consistent with previous results on 04/06/17. 51 Because ethnic data is not always readily available, this report includes an eGFR for both -Americans and non- Americans. The National Kidney Disease Education Program (NKDEP) does not endorse the use of the MDRD equation for patients that are not between the ages of 18 and 70, are , have extremes of body size, muscle mass, or nutritional status, or are non- or non-. According to the National Kidney Foundation, irrespective of diagnosis, the stage of the disease is based on the level of kidney function: Stage Description GFR(mL/min/1.73 m(2)) 1 Kidney damage with normal or decreased GFR 90 2 Kidney damage with mild decrease in GFR 60-89 3 Moderate decrease in GFR 30-59 4 Severe decrease in GFR 15-29 5 Kidney failure <15 (or dialysis) 52 SEE RESULTS BELOW [id number] [facility] 04/06/17 1020 53 Because ethnic data is not always readily available, this report includes an eGFR for both -Americans and non- Americans. The National Kidney Disease Education Program (NKDEP) does not endorse the use of the MDRD equation for patients that are not between the ages of 18 and 70, are , have extremes of body size, muscle mass, or nutritional status, or are non- or non-. According to the National Kidney Foundation, irrespective of diagnosis, the stage of the disease is based on the level of kidney function: Stage Description GFR(mL/min/1.73 m(2)) 1 Kidney damage with normal or decreased GFR 90 2 Kidney damage with mild decrease in GFR 60-89 3 Moderate decrease in GFR 30-59 4 Severe decrease in GFR 15-29 5 Kidney failure <15 (or dialysis) 54 Consistent with previous results on 04/03/17. 55 Consistent with previous results on 03/31/17. 56 Because ethnic data is not always readily available, this report includes an eGFR for both -Americans and non- Americans. The National Kidney Disease Education Program (NKDEP) does not endorse the use of the MDRD equation for patients that are not between the ages of 18 and 70, are , have extremes of body size, muscle mass, or nutritional status, or are non- or non-. According to the National Kidney Foundation, irrespective of diagnosis, the stage of the disease is based on the level of kidney function: Stage Description GFR(mL/min/1.73 m(2)) 1 Kidney damage with normal or decreased GFR 90 2 Kidney damage with mild decrease in GFR 60-89 3 Moderate decrease in GFR 30-59 4 Severe decrease in GFR 15-29 5 Kidney failure <15 (or dialysis) Procedures Date Code Description Status 05/06/2018 [id number] Diabetic Retinal Eye Exam Completed 04/25/2016 55339 ECHO Transthoracic, Real-Time 2D With Doppler And Completed Color Flow 04/17/2014 [id number] Colonoscopy Completed 01/31/2011 [id number] Colonoscopy Completed Encounters Type Date Location Provider Dx Diagnosis Office Visit 05/27/2018 [facility] Rm Z00.01 Encounter for 9:00a Luke Robledo M.D.,FACP general adult Rd medical exam w abnormal findings E03.8 Other specified hypothyroidism E11.9 Type 2 diabetes mellitus without complications E78.2 Mixed hyperlipidemia Office Visit 01/01/2018 8:40a [facility] Rm E11.9 Type 2 diabetes Luke Robledo M.D.,FACP mellitus without [address] complications E03.8 Other specified hypothyroidism I10 Essential (primary) hypertension Office Visit 06/08/2017 9:30a [facility] Internal Dianne I10 Essential (primary ) Medicine Ilir Rowe NP hypertension [address] E11.9 Type 2 diabetes mellitus without complications Office Visit 06/24/2016 11:45a [facility] Dimitri M76.61 [facility] tendinitis, right C.M.A. leg Office Visit 03/27/2016 8:30a Orthopedic Dimitri S86.011D Strain of right [facility] Achilles tendon, C.M.A. subsequent encounter Office Visit 01/24/2016 9:15a Orthopedic Dimitri S86.011D Strain of right [facility] Achilles tendon, C.M.A. subsequent encounter S86.011D Strain of right Achilles tendon, subsequent encounter Office Visit 12/20/2015 9:00a Orthopedic Dimitri Wing [facility] tendinitis, right C.M.A. leg Office Visit 11/16/2015 9:10a Orthopedic Dimitri Wing [facility] tendinitis, right C.M.A. leg Office Visit 09/20/2015 9:15a Orthopedic Dimitri Wing [facility] tendinitis, right C.M.A. leg Office Visit 08/17/2015 11:10a Orthopedic Dimitri Leach.[facility] tendinitis, right C.M.A. leg Office Visit 06/19/2015 10:40a Orthopedic Kiley Leach.[facility] tendinitis, right C.M.A. leg S86.011S Strain of right Achilles tendon, sequela Office Visit 04/25/2015 2:45p Orthopedic Srinivasan Vincent, S86.011S Strain of right [facility] C.M.A. tendon, sequela M76.61 Achilles tendinitis, right leg M76.61 [facility]illes tendinitis, right leg S86.011A Strain of right Achilles tendon, initial encounter S86.011S Strain of right Achilles tendon, sequela S86.011A Strain of right Achilles tendon, initial encounter Plan of Treatment No Information Available
[2018-07-23] MEDS: NS 0.9% 1000 ML* 2,700 ML IV ONE (10:47)
--- NOTE | 2018-07-23 10:59 | ED ---
Syncope/Near Syncope - HPI Summary HPI Summary: A 63 y/o male presents to the ED c/o syncopal episode last Thursday (07/21/2018 ). Currently, the patient is experiencing body aches, but no neck stiffness. He stated that he did not have neck stiffness this morning when he woke up, but on the way to the [facility] ED he experienced it. In the ED room, the patient has a pulse of 91 BPM, O2 saturation of 99%, and blood pressure of 133/75. According to the patient, he was referred by his primary care provider, Dr. Robledo, to come to ED for a syncopal episode that occurred this past Thursday when he was sitting in a chair. He stated that he felt dizzy and lightheaded, but his blood pressure at the time of the episode was approximately 80-90/50, however, it went back to 120/70. Regardless of the episode, he still continued on with his day. He came to the ED today, because he wasn't feeling well. He noted that he has been experiencing some lower back pain and neck stiffness (intermittent) ever since. Additionally, his urine has been exhibiting a darker color for the past couple weeks. He denies any vomiting, diarrhea, photophobia, rashes, skin sores, misophonia, blood in stool, sore throat, chills, CP. but he does have a nonproductive cough, fever (previously at MD office) of 100.5, and was diaphoretic. Additionally, he has abdominal pain from coughing. Furthermore, he had a headache this morning, but not anymore. He noted that his whole body aches intermittently. He only has a rhinorrhea when he eats. He has no history of liver, gallbladder issues, jaundice, DM, throat issues, diverticulitis, but does have a history of throat cancer and a feeding tube (due to the cancer). 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 Patient takes thyroid and cholesterol medications. He went off the cholesterol medications because it was given him lots of pain, but once he took himself off it he felt a lot better. All his cancer is in remission at this time. Vaccines are all up to date , but he did not have a flu shot. Home Medications Medication Instructions Recorded Confirmed Type Simvastatin 20 mg PO DAILY 04/13/14 07/23/18 History Levothyroxine TAB* [Synthroid TAB*] 50 mcg PO DAILY #30 tab 10/09/17 07/23/18 Rx - History Of Current Complaint Chief Complaint: EDWeakness Time Seen by Provider: 07/23/18 10:22 Hx Obtained From: Patient Onset/Duration: Sudden Onset Timing: Intermittent Episode Lasting Context: Unwitnessed Activity At Onset: At Rest Associated Head Trauma: No Aggravating Factor(s): Nothing Alleviating Factor(s): Nothing Associated Signs And Symptoms: Dizzy, Headache - THIS MORNING, Lightheadedness, Pain - BODY AHCES - Allergies/Home Medications Allergies/Adverse Reactions: Allergies Allergy/AdvReac Type Severity Reaction Status Date / Time No Known Allergies Allergy Verified 07/23/18 10:07 PMH/Surg Hx/FS Hx/Imm Hx Endocrine/Hematology History: Reports: Hx Diabetes Cardiovascular History: Reports: Hx Hypertension Denies: Hx Pacemaker/ICD History: Denies: Hx Renal Disease Sensory History: Reports: Hx Contacts or Glasses Denies: Hx Deafness, Hx Hearing Aid Opthamlomology History: Reports: Hx Contacts or Glasses Psychiatric History: Denies: Hx Panic Disorder - Cancer History Cancer Type, 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 PATENT DUCTAL REPAIR Infectious Disease History: No Infectious Disease History: Denies: Traveled Outside the [place] in Last 30 Days - Family History Known Family History: Positive: Other - MOTHER HAD LA - Social History Alcohol Use: None Hx Substance Use: No Substance Use Type: Reports: None Hx Tobacco Use: No Smoking Status (MU): Never Smoked Tobacco Review of Systems Positive: Fever - PREVIOUSLY OF 100.5, Skin Diaphoresis. Negative: Chills Negative: Photophobia, Erythema Positive: Nasal Discharge - RHINORRHEA ONLY WHEN EATING, Other - NEGATIVE: MISOPHONIA. Negative: Sore Throat Negative: Chest Pain Positive: Cough - NONPRODUCTIVE. Negative: Shortness Of Breath Positive: Abdominal Pain - FROM COUGHING, Other - NEGATIVE: BLOOD IN STOOL. Negative: Vomiting, Diarrhea, Nausea Positive: other - POSITIVE: DARKER COLOR. Negative: dysuria, hematuria Positive: Myalgia - BODY ACHES, Other - POSITIVE: NECK STIFFNESS, LOWER BACK PAIN. Negative: Edema Skin: Other - NEGATIVE: SKIN SORES Negative: Rash Neurological: Other - POSITIVE: DIZZINESS, LIGHTHEAD Positive: Headache - THIS MORNING, NOT CURRENTLY, Syncope All Other Systems Reviewed And Are Negative: Yes Physical Exam - Summary Physical Exam Summary: Constitutional: Well-developed, Well-nourished, Alert. (-) Distressed Skin: Warm, Dry HENT: Normocephalic; Atraumatic Eyes: Conjunctiva normal Neck: Musculoskeletal ROM normal neck. (-) JVD, (-) Stridor, (-) Tracheal deviation. No meningismus signs, full ROM of neck. Cardio: Rhythm regular, rate normal, Heart sounds normal; Intact distal pulses; The pedal pulses are 2+ and symmetric. Radial pulses are 2+ and symmetric. (-) Murmur Pulmonary/Chest wall: Effort normal. (-) Respiratory distress, (-) Wheezes, (-) Rales Abd: Soft, (-) epigastric tenderness, (-) Distension, (-) Guarding, (-) Rebound Musculoskeletal: (-) Edema Lymph: (-) Cervical adenopathy Neuro: Alert, Oriented x3 Psych: Mood and affect Normal Triage Information Reviewed: Yes Vital Signs On Initial Exam: Initial Vitals Temp Pulse Resp BP Pulse Ox 99.1 F 90 20 121/64 97 07/23/18 10:06 07/23/18 10:06 07/23/18 10:06 07/23/18 10:06 07/23/18 10:06 Vital Signs Reviewed: Yes Diagnostics - Vital Signs Vital Signs Temp Pulse Resp BP Pulse Ox 07/23/18 10:17 92 98 07/23/18 10:16 89 133/75 98 07/23/18 10:06 99.1 F 90 20 121/64 97 - Laboratory Result Diagrams: 07/23/18 10:47 07/23/18 10:47 Lab Statement: Any lab studies that have been ordered have been reviewed, and results considered in the medical decision making process. - Radiology CXR Radiology Interpretation Completed By: Radiologist Summary of Radiographic Findings: NO EVIDENCE FOR ACUTE DISEASE. ED PHYSICIAN REVIEWED THIS RADIOLOGY REPORT. - CT CT A/P CT Interpretation Completed By: Radiologist Summary of CT Findings: No evidence of diverticulitis is noted. No obstructive uropathy is noted. Normal appendix. ED PHYSICIAN REVIEWED THIS RADIOLOGY REPORT. - EKG 1020 Cardiac Rate: NL - 93 BPM EKG Rhythm: Sinus Rhythm - 93 BPM Summary of EKG Findings: NEGATIVE STEMI. Course/Dx Course Of Treatment: A 63 y/o male presents to the ED c/o syncopal episode last Thursday (07/21/2018). Currently, the patient is experiencing body aches, but no neck stiffness. He stated that he did not have neck stiffness this morning when he woke up, but on the way to the [facility] ED he experienced it. In the ED room , the patient has a pulse of 91 BPM, O2 saturation of 99%, and blood pressure of 133/75. According to the patient, he was referred by his primary care provider, Dr. Robledo, to come to ED for a syncopal episode that occurred this past Thursday when he was sitting in a chair. He stated that he felt dizzy and lightheaded, but his blood pressure at the time of the episode was approximately 80-90/50, however, it went back to 120/70. Regardless of the episode, he still continued on with his day. He came to the ED today, because he wasn't feeling well. He noted that he has been experiencing some lower back pain and neck stiffness (intermittent) ever since. Additionally, his urine has been exhibiting a darker color for the past couple weeks. He denies any vomiting , diarrhea, photophobia, rashes, skin sores, misophonia, blood in stool, sore throat, chills, CP. but he does have a nonproductive cough, fever (previously at MD office) of 100.5, and was diaphoretic. Additionally, he has abdominal pain from coughing. Furthermore, he had a headache this morning, but not anymore. He noted that his whole body aches intermittently. He only has a rhinorrhea when he eats. Physical examination findings were unremarkable. A CXR revealed no evidence for acute disease. A CT A/P revealed no evidence of diverticulitis. No obstructive uropathy is noted. An EKG revealed NSR of 93 BPM , negative STEMI. Hematology, Chemistry, coagulation, and serology screens were done. No significant laboratory abnormalities were found. Influenza screen came back negative. In the ED course, the patient received Visipaque and IV fluids. Patient will be leaving AMA. Patient was advised that the MD recommends admission to [facility], but the patient refused. The patient understands the risks and the possibility of disability by leaving AMA. Patient stated that he would like to AMA as he has too much going on tonight. He stated it is a big Thursday [place] [employer] [place]. Patient was referred to [facility] follow up as soon as possible. Patient is encouraged to return to ED for any new or worsening symptoms. Patient will be discharged AMA with a diagnosis of syncope, fever, and myalgias. Patient is to follow up with [facility] as soon as possible. Patient is to return to ED for any new or worsening symptoms. Patient is agreeable with this plan. Assessment/Plan: ALL SIGNS AND SYMPTOMS OF FLU. I DO NOT BELIEVE HE HAS MENINGITIS. - Diagnoses Provider Diagnoses: Syncope, Fever, Myalgia Discharge - Sign-Out/Discharge Documenting (check all that apply): Patient Departure - DISCHARGE - AMA - Discharge Plan Condition: Stable Disposition: AGAINST MEDICAL ADVICE Patient Education Materials: Against Medical Advice (ED), Syncope (ED), Fever in Adults (ED), Musculoskeletal Pain (ED) Referrals: Fam Robledo MD [Primary Care Provider] - As Soon As Possible Care [facility] [Outside] - As Soon As Possible Additional Instructions: FOLLOW UP WITH PRIMARY CARE PROVIDER SOON POSSIBLE. FOLLOW UP WITH [facility] SOON POSSIBLE. RETURN TO ED FOR ANY NEW OR WORSENING SYMPTOMS. - Attestation Statements Document Initiated by Scribe: Yes Documenting Scribe: Kristofer Kearney Provider For Whom Scribe is Documenting (Include Credential): Lalit Alejandro MD Scribe Attestation: Floyd, Kristofer Kearney, scribed for Lalit Alejandro MD on 07/23/18 at 1438. Status of Scribe Document: Ready
[2018-07-23 11:02] LABS: ABS Basophils 0 10^3/ul (0-0.2); ABS Eosinophils 0 10^3/ul (0-0.6); ABS Lymphocytes 0.9 10^3/ul (1.0-4.8); ABS Monocytes 0.5 10^3/ul (0-0.8); ABS Neutrophils 3.3 10^3/ul (1.5-7.7); ABS Nucleated RBC 0 10^3/ul; Eosinophil % 0.2 %; Hematocrit 29 % (42-52); Hemoglobin 10.2 g/dl (14.0-18.0); Lymphocyte % 19.2 %; Mean Corpuscular HGB Conc 36 g/dl (31-36); Mean Corpuscular Hemoglobin 30 pg (27-31); Mean Corpuscular Volume 84 fL (80-94); Mean Platelet Volume 7.7 fL (7.4-10.4); Nucleated Red Blood Cells % 0.2; Platelet Count 157 10^3/ul (150-450); Red Blood Count 3.41 10^6/ul (4.00-5.40); Red Cell Distribution Width 15 % (10.5-15); White Blood Count 4.8 10^3/ul (3.5-10.8)
[2018-07-23 11:20] LABS: Albumin 3.5 g/dL (3.2-5.2); Albumin/Globulin Ratio 1.2 (1-3); BUN/Creatinine Ratio 16.6 (8-20); Calcium 8.7 mg/dL (8.6-10.3); EGFR Non-African American 36.5 (>60); Globulin 2.9 g/dL (2-4); Potassium 3.9 mmol/L (3.5-5.0); Total Bilirubin 0.5 mg/dL (0.2-1.0); Total Protein 6.4 g/dL (6.4-8.9)
[2018-07-23 11:21] LABS: Activated Partial Thrombo Time 26.8 seconds (26.0-36.3); INR 1.04 (0.77-1.02)
[2018-07-23 13:27] LABS: Urine Appearance Clear; Urine Bacteria Absent (Absent); Urine Bilirubin Negative (Negative); Urine Blood 1+ (Negative); Urine Color Yellow; Urine Glucose Negative (Negative); Urine Ketones Negative (Negative); Urine Nitrite Negative (Negative); Urine Protein Negative (Negative); Urine Red Blood Cell Trace(0-2/hpf) (Absent); Urine Specific Gravity 1.019 (1.010-1.030); Urine Urobilinogen Negative (Negative); Urine White Blood Cell Trace(0-5/hpf) (Absent)
[2018-07-23 14:03] VITALS: BP 128/68
== END | disposition left against medical advice (07) ==
LOC: ED 09:56
DX: R55 Syncope and collapse (principal); R50.9 Fever, unspecified; R42 Dizziness and giddiness; R51 Headache
CPT/HCPCS: 36415; 71045; 74177; 80053; 81003; 81015; 83605; 84484; 85025; 85610; 85730; 87040; 87086; 93005; 96360; 96361; 99283; Q9967